=== PATIENT | male | born 1995 | race Caucasian/White ===

== ENCOUNTER 2018-02-27 22:40 | Emergency (ER) | payer BC, OTHER ==
[~2018-02-27] VITALS: Ht 182.9 cm; Wt 83.3 kg
[~2018-02-27 22:40] MED LIST: ALBU1AER9 INH; FLUO40CA8 PO; INSPMPNVLG; NovoLIN-R INSULIN PER UNIT CHARGE SQ STA; PRED20TA PO
[2018-02-27 22:50] VITALS: TEMP 36.6; Ht 182.9 cm; Wt 83.3 kg
--- NOTE | 2018-02-27 23:21 | EMERGENCY ROOM VISIT NOTE ---
History Report prepared by Tray: Jaci Hooper Under the Supervision of: Dr. Jose Eduardo Costa M.D. First contact with patient: 23:01 Chief Complaint: HYPERGLYCEMIA Stated Complaint: HBS,CHEST PAIN VOMITING L ARM NUMBNESS Nursing Triage Summary: unable to eat or drink much for about 3 days due to abdominal pain, n/v. c/o pain across upper abdomen and lower chest. SOB for last 24 hours. L arm numbness. chronic back pain from hx of broken back. BSGs in 500s. insulin pump in place. 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 Positive nausea, vomiting, SOB, severe pain in the bottom of his chest and upper abdomen, and left arm numbness. Negative sore throat, recent antibiotic use, recent trauma, recent falls, or recent long travel. The patient is a diabetic, uses an insulin pump, and notes that his BSGs have been "all over the place." He reports his left arm numbness has been intermittent however it has been constant since 1200 today along with his chest pain. He describes his left arm pain as "tingling." He is accompanied by his mother who reports that he has been in DKA before. The patient is a current tobacco user. 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 Review of Systems See HPI for pertinent positives and negatives. A total of ten systems were reviewed and were otherwise negative. Past Medical & Surgical Medical Problems: (1) Diabetes Family History Diabetes mellitus Heart disease Hypertension Kidney disease Lung disease Social History Smoking Status: Never Smoker Alcohol Use: none Marital Status: single Housing Status: lives with family Occupation Status: employed Current/Historical Medications Scheduled Insulin Aspart (novoLOG INSULIN PUMP ), 1 EA N/A UD Loratadine (Claritin), 10 MG PO DAILY Quetiapine Fumarate (Seroquel), 25 MG PO HS Venlafaxine Hcl (Effexor Extended Rel), 150 MG PO DAILY Scheduled PRN Albuterol (Proair Hfa), 2 PUFFS INH Q6H PRN for Cough or Wheezing Meloxicam (Mobic), 15 MG PO DAILY PRN for Pain Allergies Coded Allergies: Penicillins (Unverified Allergy, Severe, HIVES, 02/27/18) Sulfa Drugs (Unverified Allergy, Severe, HIVES, 02/27/18) Sulfisoxazole (Verified Allergy, Unknown, hives, 02/27/18) Physical Exam Vital Signs Date Time Temp Pulse Resp B/P (MAP) Pulse Ox O2 Delivery O2 Flow Rate FiO2 02/28/18 01:18 68 20 110/81 100 02/28/18 00:55 68 20 110/81 100 Room Air 02/27/18 23:53 87 17 122/75 97 Room Air 02/27/18 23:44 97 Room Air 02/27/18 23:39 73 02/27/18 22:50 36.6 89 20 136/82 98 Room Air Physical Exam GENERAL: Awake, alert, well-appearing, NAD HENT: Normocephalic, atraumatic. EYES: Normal conjunctiva. Sclera non-icteric. PERRL. No anisocoria. NECK: Supple. No nuchal rigidity. FROM. RESPIRATORY: CTAB, no rhonchi, wheezing, crackles CARDIAC: RRR, no MRG ABDOMEN: Soft, NTND, BS+. Insulin pump in the left abdomen. Negative Homans's sign BACK: No CVA TTP MSK: No chest wall TTP, no LE edema. No calf pain. NEURO: GCS 15, CN 2-12 intact, moves all 4s on command SKIN: No rash or jaundice noted. Medical Decision & Procedures ER Provider Diagnostic Interpretation: Radiology results as stated below per my review and interpretation: CHEST XRAY Trachea is midline. Costophrenic well-marked No free air under the diaphragm Heart normal size No evidence of pleural effusion or pneumothorax. Laboratory Results 02/27/18 23:14 Red Blood Count 5.47, Mean Corpuscular Volume 82.4, Mean Corpuscular Hemoglobin 29.4, Mean Corpuscular Hemoglobin Concent 35.7, Mean Platelet Volume 9.3, Neutrophils (%) (Auto) 57.2, Lymphocytes (%) (Auto) 34.6, Monocytes (%) (Auto) 5.4, Eosinophils (%) (Auto) 2.3, Basophils (%) (Auto) 0.4, Neutrophils # (Auto) 3.95, Lymphocytes # (Auto) 2.39, Monocytes # (Auto) 0.37, Eosinophils # (Auto) 0.16, Basophils # (Auto) 0.03 02/27/18 23:14 Test 02/27/18 23:14 02/27/18 23:38 02/27/18 23:44 02/28/18 00:45 White Blood Count 6.91 K/uL (4.8-10.8) Red Blood Count 5.47 M/uL (4.7-6.1) Hemoglobin 16.1 g/dL (14.0-18.0) Hematocrit 45.1 % (42-52) Mean Corpuscular Volume 82.4 fL (80-100) Mean Corpuscular Hemoglobin 29.4 pg (25-34) Mean Corpuscular Hemoglobin Concent 35.7 g/dl (32-36) Platelet Count 260 K/uL (130-400) Mean Platelet Volume 9.3 fL (7.4-10.4) Neutrophils (%) (Auto) 57.2 % Lymphocytes (%) (Auto) 34.6 % Monocytes (%) (Auto) 5.4 % Eosinophils (%) (Auto) 2.3 % Basophils (%) (Auto) 0.4 % Neutrophils # (Auto) 3.95 K/uL (1.4-6.5) Lymphocytes # (Auto) 2.39 K/uL (1.2-3.4) Monocytes # (Auto) 0.37 K/uL (0.11-0.59) Eosinophils # (Auto) 0.16 K/uL (0-0.5) Basophils # (Auto) 0.03 K/uL (0-0.2) RDW Standard Deviation 36.8 fL (36.4-46.3) RDW Coefficient of Variation 12.2 % (11.5-14.5) Immature Granulocyte % (Auto) 0.1 % Immature Granulocyte # (Auto) 0.01 K/uL (0.00-0.02) Anion Gap 10.0 mmol/L (3-11) Est Creatinine Clear Calc Drug Dose 123.7 ml/min Estimated GFR () 119.5 Estimated GFR (Non- 103.1 BUN/Creatinine Ratio 19.0 (10-20) Calcium Level 9.5 mg/dl (8.5-10.1) Magnesium Level 1.8 mg/dl (1.8-2.4) Total Bilirubin 0.5 mg/dl (0.2-1) Direct Bilirubin 0.1 mg/dl (0-0.2) Aspartate Amino Transf (AST/SGOT) 13 U/L (15-37) Alanine Aminotransferase (ALT/SGPT) 24 U/L (12-78) Alkaline Phosphatase 82 U/L (45-117) Troponin I < 0.015 ng/ml (0-0.045) Total Protein 7.8 gm/dl (6.4-8.2) Albumin 4.1 gm/dl (3.4-5.0) Lipase 86 U/L (73-393) Beta-Hydroxybutyric Acid mg/dL (0.2-2.81) Urine Color YELLOW Urine Appearance ERROR (CLEAR) Urine pH 5.0 (4.5-7.5) Urine Specific Micro 1.044 (1.000-1.030) Urine Protein NEG (NEG) Urine Glucose (UA) 3+ (NEG) Urine Ketones NEG (NEG) Urine Occult Blood NEG (NEG) Urine Nitrite NEG (NEG) Urine Bilirubin NEG (NEG) Urine Urobilinogen NEG (NEG) Urine Leukocyte Esterase NEG (NEG) Venous Blood pH 7.41 (7.36-7.41) Venous Blood Partial Pressure CO2 45 mmHg (38.0-50.0) Venous Blood Partial Pressure O2 42 mmHg Venous Blood HCO3 28 mmol/L Venous Blood Oxygen Saturation 75.8 % Venous Blood Base Excess 2.7 mEq/L Lactic Acid Level 1.6 mmol/L (0.4-2.0) Bedside Glucose 213 mg/dl (70-99) Laboratory results reviewed by me Medications Administered Medications (Trade) Dose Ordered Sig/Isabel Route Start Time Stop Time Status Last Admin Dose Admin Sodium Chloride 1,000 ml @ 999 mls/hr Q1H1M STAT IV 02/27/18 23:22 02/28/18 00:22 DC 02/27/18 23:34 999 MLS/HR Ondansetron HCl (Zofran Inj) 4 mg NOW STAT IV 02/27/18 23:22 02/27/18 23:24 DC 02/27/18 23:33 4 MG Ketorolac Tromethamine (Toradol Inj) 30 mg NOW STAT IV 02/27/18 23:22 02/27/18 23:24 DC 02/27/18 23:33 30 MG Acetaminophen (Tylenol Tab) 1,000 mg NOW STAT PO 02/27/18 23:22 02/27/18 23:24 DC 02/27/18 23:33 1,000 MG Insulin Human Regular (novoLIN-R U-100 PER UNIT) 5 units ONE STAT SQ 02/27/18 22:30 02/27/18 23:37 DC 02/27/18 23:52 5 UNITS Fentanyl Citrate (Fentanyl Inj) 50 mcg NOW ONCE IV 02/28/18 00:30 02/28/18 00:31 DC 02/28/18 00:54 50 MCG ED Course 2315: The patient was evaluated in room B2. A complete history and physical exam was performed. 2322: Ordered Insulin Human Regualr 5 units SQ, Tylenol Tab 1000 mg PO, Toradol Inj 30 mg IV, Zofran Inj 4 mg IV, Sodium Chloride 1000 ml @ 999 mls/hr IV 0023: I checked on the patient at this time. He is not feeling much better. 0030: Ordered Fentanyl Inj 50 mcg IV 0100: I reevaluated the patient. Discussed results and discharge instructions: He and his mother verbalized understanding and agreement. The patient is ready for discharge. 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 Positive nausea, vomiting, SOB, severe pain in the bottom of his chest and upper abdomen, and left arm numbness. Negative sore throat, recent antibiotic use, recent trauma, recent falls, or recent long travel. Prior records/ancillary studies reviewed. Triage Nursing notes reviewed. Additional history obtained from the patient's mother. The patient's history was concerning for chest pain. Differential diagnosis: Etiologies such as cardiac ischemia, aortic dissection, pulmonary embolism, pneumonia, pneumothorax, musculoskeletal, infections, pericarditis, myocarditis , esophageal rupture, gastrointestinal, as well as others were entertained. Patient was seen and evaluated the bedside. Patient had complained of some chest and upper abdominal pain. Patient's story did some mildly concerning however the patient does not complain of any exertional symptoms. Patient denies any family history of early cardiac disease. Patient has noted that he has had an elevated blood glucose. No recent changes. Patient denies any infectious symptoms. Patient did have blood work completed along with a VBG and lactate. EKG and troponin was ordered. Chest x-ray also ordered. Patient's blood work did show elevated blood glucose. Patient was given 5 regular insulin IV along with IV fluids. Recheck showed he was in the 200s. Patient is a normal bicarb and normal anion gap. Less likely DKA. Of note the patient's lactate is less than 2 and pH is within normal limits. Patient's UA is negative for infection. Chest x-ray per my read appears clear and no infection noted. Upon reassessment the patient is feeling improved. Patient was told to ensure that he follows up with his PCP. Patient's EKG was nonischemic with a negative troponin. Heart score less than 4 less likely ACS. Patient is PE RC of 0 low likely PE. Patient was given strict follow-up, discharge, and return precautions. All questions were answered. Patient was deemed suitable for outpatient follow-up at this time. Patient agreed with the plan of care and was safely discharged home. Medication Reconcilliation Current Medication List: was personally reviewed by me Blood Pressure Screening Patient's blood pressure: Normal blood pressure Blood pressure disposition: Did not require urgent referral Impression Primary Impression: Hyperglycemia due to type 1 diabetes mellitus Additional Impressions: Chest pain Tobacco abuse counseling Scribe Attestation The scribe's documentation has been prepared under my direction and personally reviewed by me in its entirety. I confirm that the note above accurately reflects all work, treatment, procedures, and medical decision making performed by me. Departure Information Dispostion Home / Self-Care Referrals Cori Angel M.D. (PCP) Forms HOME CARE DOCUMENTATION FORM, IMPORTANT VISIT INFORMATION, WORK / SCHOOL INSTRUCTIONS Patient Instructions ED Chest Pain NonCardiac, ED Smoking Cessation, My [facility] Additional Instructions Please return to the emergency department if you have worsening or recurrent symptoms not amenable to at-home treatment. Please call for a follow-up appointment with her primary care physician. Please take your medications as prescribed. If you have other concerns and/or complaints please feel free to also call your primary care physician's office or return the ED for further evaluation, management, and treatment. You were found to have an elevated blood pressure today (>120 sytolic or >90 diastolic). Per medicare guidelines, you need to follow up with this blood pressure screening with your Primary Care Physician (PCP). For a new PCP call [phone]. You received narcotic or benzodiazepene medication while in the emergency room today. This is an addictive medication that may cause drowziness as well as constipation. Do not drive, operate heavy machinery, or drink alcohol under the influence of this medication. You may take 800 mg Ibuprofen every 6 hours as needed for pain/fever with food unless told by your physician not to take NSAIDs. You may take tylenol 1000 mg every 6 hours as needed for pain/fever unless told by your physician to not take it or have liver problems. You may take motrin and tylenol separately or at the same time. Take your medications as prescribed. To help with your reflux type symptoms please consider smaller more frequent meals. Please do not lay down after eating. Consider avoiding spicy, citrus, peppermint, chocolate. Consider taking a PPI like Nexium 20 mg daily or an antihistamine like Pepcid 20 mg twice daily. Sitting upright may help improve your symptoms also. Do not lay down after eating or drinking. You may also try things like Tums or Maalox. Consider tobacco cessation. If you were seen between 11pm and 7AM all radiology reads will be re-read by our in house staff. If any major discrepancies are discovered, you will be notified. You have been examined and treated today on an emergency basis only. This is not a substitute for, or an effort to provide, complete comprehensive medical care. It is impossible to recognize and treat all injuries or illnesses in a single emergency department visit. It is therefore important that you follow up closely with [facility], your PCP, and/or your specialist(s). Call as soon as possible for an appointment. Thank you for your time and consideration. I look forward to speaking with you again soon. Please don't hesitate to call us if you have any questions. Problem Qualifiers Additional Impressions: Chest pain Chest pain type: unspecified Qualified Codes: R07.9 - Chest pain, unspecified
[2018-02-27] MEDS ORDERED: ONDANSETRON INJ 2 MG/ML 2 ML VIAL IV STA (23:22)
[2018-02-27] MEDS ORDERED: SODIUM CHLORIDE 0.9% 1000ML 1,000 ML IV STA (23:22)
[2018-02-27] MEDS ORDERED: ACETAMINOPHEN 500 MG TAB PO STA (23:22)
[2018-02-27] MEDS ORDERED: KETOROLAC TROMETHAMINE 30 MG/ML VIAL IV STA (23:22)
[2018-02-27] MEDS ORDERED: INSULIN HUMAN REGULAR SC STA (23:30)
[2018-02-27] MEDS ORDERED: MELO7.5T5 PO (23:31)
[2018-02-27] MEDS ORDERED: VENL150C56 PO (23:31)
[2018-02-27 23:35] LABS: BASO % 0.4 %; EOS % 2.3 %; HEMATOCRIT 45.1 % (42-52); HEMOGLOBIN 16.1 g/dL (14.0-18.0); LYMPH % 34.6 %; LYMPH ABS # 2.39 K/uL (1.2-3.4); MEAN CELL VOLUME 82.4 fL (80-100); MEAN CORPUSCULAR HEMOGLOBIN 29.4 pg (25-34); MEAN CORPUSCULAR HGB CONC 35.7 g/dl (32-36); MEAN PLATELET VOLUME 9.3 fL (7.4-10.4); MONO % 5.4 %; NEUT % 57.2 %; NEUT ABS # 3.95 K/uL (1.4-6.5); PLATELET COUNT 260 K/uL (130-400); RED CELL DISTRIBUTION WIDTH CV 12.2 % (11.5-14.5); RED CELL DISTRIBUTION WIDTH SD 36.8 fL (36.4-46.3); WHITE BLOOD COUNT 6.91 K/uL (4.8-10.8)
[2018-02-27 23:36] LABS: BASO ABS # 0.03 K/uL (0-0.2); EOS ABS # 0.16 K/uL (0-0.5); IG# 0.01 K/uL (0.00-0.02); MONO ABS # 0.37 K/uL (0.11-0.59)
[2018-02-27 23:44] VITALS: O2SAT 97
[2018-02-28 00:05] LABS: ALBUMIN 4.1 gm/dl (3.4-5.0); ALT/SGPT 24 U/L (12-78); AST/SGOT 13 U/L (15-37); BLOOD UREA NITROGEN 19 mg/dl (7-18); CALCIUM 9.5 mg/dl (8.5-10.1); CARBON DIOXIDE 25 mmol/L (21-32); CREATININE 1.02 mg/dl (0.60-1.40); GLUCOSE 451 mg/dl (70-99); LIPASE 86 U/L (73-393); SODIUM 134 mmol/L (136-145); TOTAL PROTEIN 7.8 gm/dl (6.4-8.2)
[2018-02-28 00:17] LABS: ALKALINE PHOSPHATASE 82 U/L (45-117)
[2018-02-28] MEDS ORDERED: FENTANYL CITRATE INJ 50 MCG/1 ML 2 ML VIAL IV ONE (00:30)
[2018-02-28 01:18] VITALS: BP 110/81; PULSE 68; O2SAT 100
--- NOTE | 2018-02-28 06:39 | DIAGNOSTIC IMAGING REPORT ---
CHEST ONE VIEW PORTABLE CLINICAL HISTORY: Abdominal pain and vomiting COMPARISON STUDY: 02/05/2016 FINDINGS: The cardiac and mediastinal contours are normal. There is no evidence of focal pulmonary consolidation. There is no evidence of failure. No pleural effusions are visualized.[ There is no free intraperitoneal air. IMPRESSION: No active disease in the chest. Electronically signed by: Patrick Varghese M.D. 02/28/2018 6:38 AM Dictated Date/Time: 02/28/2018 6:38 AM
[2018-03-01] MEDS ORDERED: MELO-83 PO (22:46)
[2018-03-01] MEDS ORDERED: EFFSR150 PO (22:46)
[2018-03-01] MEDS ORDERED: INSPMPNVLG (22:46)
[2018-03-01] MEDS ORDERED: ATOR-22 PO (22:46)
[2018-03-01] MEDS ORDERED: ALBU18002 INH (22:48)
[2018-03-01] MEDS ORDERED: QUET1TAB30 PO (23:30)
[2018-03-01] MEDS ORDERED: CLR10 PO (23:32)
== END 2018-02-28 01:19 | disposition home or self-care (01) ==
LOC: C.EDB 22:41
DX: E10.65 Type 1 diabetes mellitus with hyperglycemia (principal); R07.9 Chest pain, unspecified; Z71.6 Tobacco abuse counseling; F17.200 Nicotine dependence, unspecified, uncomplicated; Z83.3 Family history of diabetes mellitus; Z79.4 Long term (current) use of insulin; Z79.899 Other long term (current) drug therapy; Z88.0 Allergy status to penicillin; Z88.2 Allergy status to sulfonamides; Z96.41 Presence of insulin pump (external) (internal)

== ENCOUNTER 2018-03-01 22:17 | Emergency (ER) | payer OTHER ==
[~2018-03-01] VITALS: Ht 182.9 cm; Wt 85.0 kg
[~2018-03-01 22:17] MED LIST changes: -FLUO40CA8 PO; +MELO7.5T5 PO; -NovoLIN-R INSULIN PER UNIT CHARGE SQ STA; -PRED20TA PO; +VENL150C56 PO
[2018-03-01 22:18] VITALS: Ht 182.9 cm; Wt 85.0 kg
[2018-03-01 22:38] VITALS: O2SAT 96
[2018-03-01] MEDS ORDERED: ONDANSETRON INJ 2 MG/ML 2 ML VIAL IV STA (22:42)
[2018-03-01] MEDS ORDERED: SODIUM CHLORIDE 0.9% 1000ML 2,000 ML IV STA (22:42)
[2018-03-01] MEDS ORDERED: FAMOTIDINE 20 MG TAB PO ONE (22:45)
[2018-03-01] MEDS ORDERED: INSPMPNVLG (22:46)
[2018-03-01] MEDS ORDERED: MELO-83 PO (22:46)
[2018-03-01] MEDS ORDERED: EFFSR150 PO (22:46)
[2018-03-01] MEDS ORDERED: ATOR-22 PO (22:46)
[2018-03-01] MEDS ORDERED: ALBU18002 INH (22:48)
--- NOTE | 2018-03-01 22:50 | EMERGENCY ROOM VISIT NOTE ---
History Report prepared by Tray: Darien Smith Under the Supervision of: Dr. Bo Gore M.D. First contact with patient: 22:22 Chief Complaint: CHEST PAIN Stated Complaint: CHEST PAINS History of Present Illness The patient is a 22 year old male who presents to the Emergency Room with complaints of worsening chest pain that began a couple of days ago. He rates his discomfort as a 10/10 in severity. The patient states that he has been experiencing chest pain that originally felt like heart burn. The patient states that he was here in the ED two days ago due to his chest pain. He reports that he had lab work and an X-ray done, which were normal. The patient states that after discharge, his chest pain worsened. He reports he has also been nauseous, which is worsened with movement. The patient states took Zofran for his nausea which helped. He reports that he has vomited twice today. He reports he tried to take Tums today, but reports he was not relieved of symptoms. The patient states he has also been experiencing diaphoresis episodes and left arm numbness. He denies fevers, chills, urinary symptoms, previous similar symptoms, a smoking history, drug use, alcohol use, a history of blood clots, a history of a cholecystectomy, and a family history of PR. The patient reports a history of Type 1 diabetes. He reports he uses an insulin pump. He states his last BSG was in the 100s around 1300 today. The patient states he went into DKA three years ago because he was not using his insulin properly. Source of History: patient Onset: a couple of days ago Position: chest Symptom Intensity: 10/10 Timing: worsening Associated Symptoms: + diaphoresis, + nausea, + vomiting, + numbness, No fevers, No chills, No urinary symptoms Review of Systems See HPI for pertinent positives and negatives. A total of ten systems were reviewed and were otherwise negative. Past Medical & Surgical Medical Problems: (1) Diabetes Family History Diabetes mellitus Heart disease Hypertension Kidney disease Lung disease Social History Smoking Status: Never Smoker Alcohol Use: none Marital Status: single Housing Status: lives with family Occupation Status: employed Current/Historical Medications Scheduled Atorvastatin (Lipitor), 20 MG PO DAILY Famotidine (Pepcid), 20 MG PO BID Insulin Aspart (novoLOG INSULIN PUMP ), 1 EA N/A UD Loratadine (Claritin), 10 MG PO DAILY Omeprazole (Prilosec), 40 MG PO DAILY Ondasetron Odt (Zofran Odt), 4 MG SL Q6H Quetiapine Fumarate (Seroquel), 25 MG PO HS Sucralfate (Carafate), 10 ML PO QID Venlafaxine Hcl (Effexor Extended Rel), 150 MG PO DAILY Scheduled PRN Albuterol Sulfate (Proair Respiclick), 2 PUFFS INH Q6H PRN for Cough or Wheezing Meloxicam (Meloxicam), 15 MG PO DAILY PRN for Pain Allergies Coded Allergies: Penicillins (Unverified Allergy, Severe, HIVES, 02/27/18) Sulfa Drugs (Unverified Allergy, Severe, HIVES, 02/27/18) Sulfisoxazole (Verified Allergy, Unknown, hives, 02/27/18) Physical Exam Vital Signs Date Time Temp Pulse Resp B/P (MAP) Pulse Ox O2 Delivery O2 Flow Rate FiO2 03/02/18 02:10 36.8 60 20 110/60 100 Room Air 03/02/18 01:00 36.6 67 20 100/66 100 Room Air 03/01/18 22:47 88 03/01/18 22:38 96 Room Air 03/01/18 22:38 96 Room Air 03/01/18 22:18 36.6 101 20 123/78 100 Room Air Physical Exam GENERAL: Awake, alert, fatigued, uncomfortable appearing, in no distress HENT: Normocephalic, atraumatic. Oropharynx unremarkable. EYES: Normal conjunctiva. Sclera non-icteric. NECK: Supple. No nuchal rigidity. FROM. No JVD. RESPIRATORY: Clear to auscultation. CARDIAC: Regular rate, normal rhythm. Extremities warm and well perfused. Pulses equal. ABDOMEN: Soft, non-distended. Mild epigastric discomfort, no discrete tenderness. No rebound or guarding. No masses. RECTAL: Deferred. MUSCULOSKELETAL: Chest examination reveals no tenderness. The back is symmetrical on inspection without obvious abnormality. There is no CVA tenderness to palpation. No joint edema. LOWER EXTREMITIES: Calves are equal size bilaterally and non-tender. No edema. No discoloration. NEURO: Normal sensorium. No sensory or motor deficits noted. SKIN: No rash or jaundice noted. Diaphoretic and clammy. Medical Decision & Procedures ER Provider Diagnostic Interpretation: Radiology results as stated below per my review and radiologist interpretation: CHEST ONE VIEW PORTABLE HISTORY: 22 years-old Male ABDOMINAL PAIN/GI acute generalized abdominal pain COMPARISON: Chest radiograph 02/27/2018, CT chest 02/05/2016 TECHNIQUE: Portable AP view of the chest FINDINGS: Cardiomediastinal and hilar silhouettes are within normal limits. There is no pneumothorax, pleural effusion, focal airspace consolidation or overt pulmonary edema. The bones of the chest appear grossly intact. IMPRESSION: No acute process. The above report was generated using voice recognition software. It may contain grammatical, syntax or spelling errors. Electronically signed by: Martín Devlin M.D. 03/01/2018 11:04 PM Dictated Date/Time: 03/01/2018 11:03 PM US RUQ: Contracted gallbladder. Nondilated CBD. No renal stones or hydronephrosis. Enlarged fatty liver. Laboratory Results 03/01/18 22:30 Red Blood Count 5.41, Mean Corpuscular Volume 80.8, Mean Corpuscular Hemoglobin 28.8, Mean Corpuscular Hemoglobin Concent 35.7, Mean Platelet Volume 9.4, Neutrophils (%) (Auto) 61.4, Lymphocytes (%) (Auto) 29.3, Monocytes (%) (Auto) 7.2, Eosinophils (%) (Auto) 1.7, Basophils (%) (Auto) 0.3, Neutrophils # (Auto) 4.77, Lymphocytes # (Auto) 2.28, Monocytes # (Auto) 0.56, Eosinophils # (Auto) 0.13, Basophils # (Auto) 0.02 03/01/18 22:30 Test 03/01/18 00:00 03/01/18 22:30 03/01/18 23:12 03/01/18 23:19 Urine Color YELLOW Urine Appearance CLEAR (CLEAR) Urine pH 6.5 (4.5-7.5) Urine Specific [place] 1.029 (1.000-1.030) Urine Protein NEG (NEG) Urine Glucose (UA) 3+ (NEG) Urine Ketones NEG (NEG) Urine Occult Blood NEG (NEG) Urine Nitrite NEG (NEG) Urine Bilirubin NEG (NEG) Urine Urobilinogen NEG (NEG) Urine Leukocyte Esterase NEG (NEG) White Blood Count 7.77 K/uL (4.8-10.8) Red Blood Count 5.41 M/uL (4.7-6.1) Hemoglobin 15.6 g/dL (14.0-18.0) Hematocrit 43.7 % (42-52) Mean Corpuscular Volume 80.8 fL (80-100) Mean Corpuscular Hemoglobin 28.8 pg (25-34) Mean Corpuscular Hemoglobin Concent 35.7 g/dl (32-36) Platelet Count 263 K/uL (130-400) Mean Platelet Volume 9.4 fL (7.4-10.4) Neutrophils (%) (Auto) 61.4 % Lymphocytes (%) (Auto) 29.3 % Monocytes (%) (Auto) 7.2 % Eosinophils (%) (Auto) 1.7 % Basophils (%) (Auto) 0.3 % Neutrophils # (Auto) 4.77 K/uL (1.4-6.5) Lymphocytes # (Auto) 2.28 K/uL (1.2-3.4) Monocytes # (Auto) 0.56 K/uL (0.11-0.59) Eosinophils # (Auto) 0.13 K/uL (0-0.5) Basophils # (Auto) 0.02 K/uL (0-0.2) RDW Standard Deviation 35.7 fL (36.4-46.3) RDW Coefficient of Variation 12.2 % (11.5-14.5) Immature Granulocyte % (Auto) 0.1 % Immature Granulocyte # (Auto) 0.01 K/uL (0.00-0.02) Est Creatinine Clear Calc Drug Dose 128.7 ml/min Estimated GFR () 125.4 Estimated GFR (Non- 108.2 BUN/Creatinine Ratio 14.7 (10-20) Calcium Level 9.1 mg/dl (8.5-10.1) Total Bilirubin 0.3 mg/dl (0.2-1) Direct Bilirubin 0.1 mg/dl (0-0.2) Aspartate Amino Transf (AST/SGOT) 21 U/L (15-37) Alanine Aminotransferase (ALT/SGPT) 23 U/L (12-78) Alkaline Phosphatase 68 U/L (45-117) Total Protein 7.3 gm/dl (6.4-8.2) Albumin 3.9 gm/dl (3.4-5.0) Lipase 74 U/L (73-393) Venous Blood pH 7.44 (7.36-7.41) Venous Blood Partial Pressure CO2 44 mmHg (38.0-50.0) Venous Blood Partial Pressure O2 40 mmHg Venous Blood HCO3 29 mmol/L Venous Blood Oxygen Saturation 74.3 % Venous Blood Base Excess 3.9 mEq/L Lactic Acid Level 1.4 mmol/L (0.4-2.0) Bedside Hemoglobin 14.6 g/dl (14.0-18.0) Bedside Hematocrit 43 % (42-52) Bedside Sodium 139 mEq/L (135-144) Bedside Potassium 3.5 mEq/L (3.3-5.0) Bedside Chloride 100 mEq/L (101-112) Bedside Total CO2 24 mEq/l (24-31) Anion Gap 20.0 mmol/L (16-25) Bedside Blood Urea Nitrogen 16 mg/dl (7-18) Bedside Creatinine 0.7 mg/dl (0.6-1.3) Bedside Glucose (other) 286 mg/dl (70-99) Bedside Ionized Calcium (Rhonda) 1.21 mmol/l (1.12-1.32) Laboratory results reviewed by me Medications Administered Medications (Trade) Dose Ordered Sig/Isabel Route Start Time Stop Time Status Last Admin Dose Admin Sodium Chloride 2,000 ml @ 999 mls/hr Q2H1M STAT IV 03/01/18 22:42 03/02/18 00:42 DC 03/01/18 23:12 999 MLS/HR Ondansetron HCl (Zofran Inj) 4 mg NOW STAT IV 03/01/18 22:42 03/01/18 22:49 DC 03/01/18 23:12 4 MG Famotidine (Pepcid Tab) 20 mg NOW ONCE PO 03/01/18 22:45 03/01/18 22:49 DC 03/01/18 23:12 20 MG Al Hydroxide/Mg Hydroxide (Maalox Susp) 30 ml STK-MED ONCE .ROUTE 03/02/18 00:04 03/02/18 00:05 DC 03/02/18 00:06 30 ML Lidocaine HCl (Viscous Lidocaine 2% Soln) 20 ml STK-MED ONCE .ROUTE 03/02/18 00:04 03/02/18 00:05 DC 03/02/18 00:06 20 ML Sucralfate (Carafate Susp) 1 gm NOW STAT PO 03/02/18 02:03 03/02/18 02:05 DC 03/02/18 02:10 1 GM Pantoprazole Sodium (Protonix Tab) 40 mg NOW STAT PO 03/02/18 02:03 03/02/18 02:05 DC 03/02/18 02:10 40 MG ECG Per My Interpretation Indication: chest pain Rate (beats per minute): 95 Rhythm: normal sinus Findings: no acute ischemic change, other (Normal axis) ED Course 2241: The patient was evaluated in room B09. A complete history and physical exam was performed. 0200: I reevaluated the patient and he is feeling better. I discussed the results with the patient. I discussed the treatment plan, which he understands. The patient is ready for discharge. Medical Decision I reviewed the patient's past medical history, medications, and the nursing notes as described above. Differential Diagnosis: cardiac ischemia, aortic dissection, pulmonary embolism , pneumonia, pneumothorax, musculoskeletal, infections, pericarditis, myocarditis, esophageal rupture, gastrointestinal, as well as others were entertained. The patient is a 22 y/o gentleman with a pmhx of [id number] who presents to the emergency department with persistent chest/upper abdominal pain with n/v since being seen in the ED on 02/27 for similar sx per HPI. On arrival the patient is fatigued and uncomfortable but in NAD, AFVSS. Patient appears clinically dry. Mild epigastric discomfort but no discrete ttp. Labs unremarkable. No evidence of DKA. RUQ negative for gallstones or pericholecystic fluid. EKG unremarkable without TIA or HI depressions. Negative Spodick's sign. CXR negative. Patient improved after IVF, zofran, pepcid, GI cocktail. Heart score 0, low risk, acs unlikely. PERC negative PE not likely. Not positional, pericarditis not likely. No tearing pain and equal pulses, dissection not likely. Sx most c/w gastritis/ PUD. Plan for pcp and GI f/u. Findings and plan for follow-up reviewed with patient. Patient agreeable and d/c'd per discharge instructions. Medication Reconcilliation Current Medication List: was personally reviewed by me Blood Pressure Screening Patient's blood pressure: Normal blood pressure Impression Primary Impression: Gastritis Scribe Attestation The scribe's documentation has been prepared under my direction and personally reviewed by me in its entirety. I confirm that the note above accurately reflects all work, treatment, procedures, and medical decision making performed by me. Departure Information Dispostion Home / Self-Care Prescriptions Ondasetron Odt (ZOFRAN ODT) 4 Mg Tab 4 MG SL Q6H for Nausea, #10 TAB Prov: Bo Gore M.D. 03/02/18 Sucralfate (CARAFATE) 1 Gm/10 Ml Michelle 10 ML PO QID for 10 Days, #400 ML Prov: Bo Gore M.D. 03/02/18 Omeprazole (PRILOSEC) 40 Mg Cap 40 MG PO DAILY for 10 Days, #10 CAP Prov: Bo Gore M.D. 03/02/18 Famotidine (PEPCID) 20 Mg Tab 20 MG PO BID for 10 Days, #20 TAB Prov: Bo Gore M.D. 03/02/18 Referrals Cori Angel M.D. (PCP) Cody Renner M.D. Patient Instructions ED Gastritis, ED PUD Vs Gastritis, [facility] Additional Instructions Please follow up with your primary care physician in the next 1-3 days for re- evaluation and possible GI referral. Your symptoms are most likely related to a gastritis or peptic ulcer. Otherwise, your exam, EKG, chest xray, lab results, and gall bladder ultrasound did not show signs of an emergent condition at this time. Acetaminophen for pain and fevers as needed. Pepcid and omeprazole for acid reduction as directed. Carafate as directed for additional gastritis relief. Zofran as needed for nausea. Drink plenty of fluids to ensure hydration. Return to the emergency department for worsening symptoms as described in the accompanying instructions.
[2018-03-01 22:55] LABS: BASO % 0.3 %; BASO ABS # 0.02 K/uL (0-0.2); EOS % 1.7 %; EOS ABS # 0.13 K/uL (0-0.5); HEMATOCRIT 43.7 % (42-52); HEMOGLOBIN 15.6 g/dL (14.0-18.0); IG# 0.01 K/uL (0.00-0.02); LYMPH % 29.3 %; LYMPH ABS # 2.28 K/uL (1.2-3.4); MEAN CELL VOLUME 80.8 fL (80-100); MEAN CORPUSCULAR HEMOGLOBIN 28.8 pg (25-34); MEAN CORPUSCULAR HGB CONC 35.7 g/dl (32-36); MEAN PLATELET VOLUME 9.4 fL (7.4-10.4); MONO % 7.2 %; MONO ABS # 0.56 K/uL (0.11-0.59); NEUT % 61.4 %; NEUT ABS # 4.77 K/uL (1.4-6.5); PLATELET COUNT 263 K/uL (130-400); RED CELL DISTRIBUTION WIDTH CV 12.2 % (11.5-14.5); RED CELL DISTRIBUTION WIDTH SD 35.7 fL (36.4-46.3); WHITE BLOOD COUNT 7.77 K/uL (4.8-10.8)
--- NOTE | 2018-03-01 23:05 | DIAGNOSTIC IMAGING REPORT ---
CHEST ONE VIEW PORTABLE HISTORY: 22 years-old Male ABDOMINAL PAIN/GI acute generalized abdominal pain COMPARISON: Chest radiograph 02/27/2018, CT chest 02/05/2016 TECHNIQUE: Portable AP view of the chest FINDINGS: Cardiomediastinal and hilar silhouettes are within normal limits. There is no pneumothorax, pleural effusion, focal airspace consolidation or overt pulmonary edema. The bones of the chest appear grossly intact. IMPRESSION: No acute process. The above report was generated using voice recognition software. It may contain grammatical, syntax or spelling errors. Electronically signed by: Martín Devlin M.D. 03/01/2018 11:04 PM Dictated Date/Time: 03/01/2018 11:03 PM
[2018-03-01 23:13] LABS: ALBUMIN 3.9 gm/dl (3.4-5.0); CALCIUM 9.1 mg/dl (8.5-10.1); CREATININE 0.98 mg/dl (0.60-1.40); POTASSIUM 3.5 mmol/L (3.5-5.1)
[2018-03-01 23:15] LABS: TOTAL PROTEIN 7.3 gm/dl (6.4-8.2)
[2018-03-01] MEDS ORDERED: QUET1TAB30 PO (23:30)
[2018-03-01] MEDS ORDERED: CLR10 PO (23:32)
[2018-03-01 23:48] LABS: ISTAT CREATININE 0.7 mg/dl (0.6-1.3); ISTAT IONIZED CALCIUM 1.21 mmol/l (1.12-1.32); ISTAT POTASSIUM 3.5 mEq/L (3.3-5.0)
[2018-03-01] MEDS ORDERED: GI COCKTAIL PO STA (23:54)
[2018-03-02] MEDS ORDERED: LIDOCAINE HCL 2% VISC SOLN 20 ML UDC ONE (00:04)
[2018-03-02] MEDS ORDERED: ALUMINUM/MAGNESIUM SUSP 30 ML UDC ONE (00:04)
[2018-03-02] MEDS ORDERED: SUCRALFATE 1 GM/10 ML UDC PO STA (02:03)
[2018-03-02] MEDS ORDERED: PANTOprazole SOD 40 MG TAB PO STA (02:03)
[2018-03-02] MEDS ORDERED: OMEP40CA41 PO (02:07)
[2018-03-02] MEDS ORDERED: FAMO20TA9 PO (02:07)
[2018-03-02] MEDS ORDERED: ONDA4TAB10 SL (02:07)
[2018-03-02] MEDS ORDERED: CRFL PO (02:07)
[2018-03-02 02:10] VITALS: BP 110/60; PULSE 60; TEMP 36.8; O2SAT 100
--- NOTE | 2018-03-02 07:55 | DIAGNOSTIC IMAGING REPORT ---
GALLBLADDER-ABD LIMITED CLINICAL HISTORY: 22 years-old Male presenting with right upper abdominal pain, vomiting. TECHNIQUE: Real-time grayscale and limited color Doppler ultrasound imaging of the abdomen limited to the right upper quadrant was performed. COMPARISON: CT from 02/05/2016. FINDINGS: Pancreas: Largely obscured due to overlying bowel gas. Liver: Mildly hyperechogenic parenchyma, although the right hemidiaphragm remains visible, likely indicating mild steatosis. The liver measures 18.6 cm in maximal sagittal dimension. No sonographic evidence of hepatic mass. Main portal vein patent with normal directional flow. Biliary: No intrahepatic biliary ductal dilatation. Common bile duct measures up to 4 mm in diameter. Gallbladder: Decompressed. No gallstones, pathologic distention, pericholecystic fluid or inflammatory change. Right kidney: Normal in appearance without evidence of hydronephrosis. Ascites: None. Other: None. IMPRESSION: 1. No cholelithiasis or biliary ductal dilatation. 2. Hepatic steatosis and mild hepatomegaly. Correlate with liver function tests to exclude steatohepatitis as a cause for abdominal pain. Electronically signed by: Jeovany Nagy M.D. 03/02/2018 7:53 AM Dictated Date/Time: 03/02/2018 6:55 AM
== END 2018-03-02 02:18 | disposition home or self-care (01) ==
LOC: C.EDB 22:20
DX: K29.70 Gastritis, unspecified, without bleeding (principal); E10.9 Type 1 diabetes mellitus without complications; Z96.41 Presence of insulin pump (external) (internal); Z79.4 Long term (current) use of insulin; Z79.899 Other long term (current) drug therapy; Z88.0 Allergy status to penicillin; Z88.2 Allergy status to sulfonamides

== ENCOUNTER 2021-02-23 19:20 | Inpatient (IN) ==
[2021-02-23] MEDS ORDERED: SODIUM CHLORIDE 0.9% 1000ML 1,000 ML IV STA (19:30)
[2021-02-23] MEDS ORDERED: ONDANSETRON INJ 2 MG/ML 2 ML VIAL IV STA (19:30)
[2021-02-23 19:53] LABS: Basophils # (auto) 0.02 K/uL (0-0.2); Basophils % (auto) 0.2 %; Eosinophils # (auto) 0.03 K/uL (0-0.5); Eosinophils % (auto) 0.3 %; Hematocrit (blood only) 48.2 % (42-52); Hemoglobin 16.5 g/dL (14.0-18.0); Immature Granulocytes # (auto) 0.01 K/uL (0.00-0.02); Immature Granulocytes % (auto) 0.1 %; Lymphocytes # (auto) 0.92 K/uL (1.2-3.4); Lymphocytes % (auto) 8.2 %; Mean Corpuscular Hemoglobin 29.7 pg (25-34); Mean Corpuscular Hgb Conc 34.2 g/dL (32-36); Mean Corpuscular Volume 86.7 fL (80-100); Monocytes # (auto) 0.29 K/uL (0.11-0.59); Monocytes % (auto) 2.6 %; Neutrophils # (auto) 9.96 K/uL (1.4-6.5); Neutrophils % (auto) 88.6 %; Platelet Count 358 K/uL (130-400); RDW Coefficient of Variation 12.4 % (11.5-14.5); RDW Standard Deviation 39.7 fL (36.4-46.3); Red Blood Count 5.56 M/uL (4.7-6.1); White Blood Count 11.23 K/uL (4.8-10.8)
--- NOTE | 2021-02-23 19:59 | Emergency Department Note ---
Impression & Plan DKA (diabetic ketoacidoses), Nausea & vomiting, Headache ED Provider Note NAME: CATHRYN DING AGE: 25 SEX: M : 1995 ARRIVES VIA: Walk-In INFORMANT: Patient, ED PROVIDER(S): Hung Brown DO CHIEF COMPLAINT: Nausea vomiting HPI: The patient is a 25-year-old male who presented to the emergency department for an evaluation of nausea vomiting. The patient has seen his family doctor for the symptoms. The symptoms have been ongoing for the last few days. The patient does take insulin for diabetes. Currently has an insulin pump which is running. The patient states he is noted his blood sugars have been elevated and they have been over 400. He describes nausea vomiting and severe headache. He also describes sore throat. He denies having any abdominal pain. He does describe some chest pain but states it is secondary to all the vomiting. He has had no fever. He notices no weakness in the arms or legs. He states that he has had similar symptoms in the past with a headache. He states he has had similar symptoms in the past with the vomiting but this appears to be worse compared to his baseline. The patient has no neck stiffness. He said no recent traveling. He said no exposure to COVID-19. ROS: See above HPI for pertinent positives & negatives. A total of 10 systems reviewed and were otherwise negative. PAST MEDICAL HISTORY: See Below PAST SURGICAL HISTORY: See Below FAMILY HISTORY: See Below SOCIAL HISTORY: See Below HOME MEDICATIONS: See Below ALLERGIES: See Below VITALS: See Below PHYSICAL EXAMINATION: GENERAL: The patient is awake and alert. The patient is very anxious appearing. EYES: The conjunctivae are clear. The pupils are round and reactive. EARS, NOSE, MOUTH AND THROAT: The nose is without any evidence of any deformity. Mucous membranes are dry. NECK: The neck is nontender and supple. RESPIRATORY: Normal respiratory effort is noted there is no evidence of wheezing rhonchi or rales CARDIOVASCULAR: Regular rate and rhythm noted there no murmurs rubs or gallops normal S1 normal S2. GASTROINTESTINAL: The abdomen is soft. Abdomen is nontender. MUSCULOSKELETAL/EXTREMITIES: There is no evidence of gross deformity full range of motion is noted in the hips and shoulders. SKIN: There is no obvious evidence of any rash. There are no petechiae, pallor or cyanosis noted. NEUROLOGIC: Patient is awake alert and oriented x3 strength is symmetric patellar reflexes are 2+ bilaterally MEDICAL DECISION MAKING: The patient is a 25-year-old male who has a history of insulin-dependent diabetes who presented to the emergency department with nausea vomiting. The patient was somewhat tachypneic initially. He is also been having elevated blood sugar at home. The patient was treated with IV fluids and IV antiemetics. He was reevaluated multiple times. I discussed the patient's laboratory and radiographic studies with him. His vital signs improved but he still continued to have a headache. The patient was found to be in DKA. Insulin orders were put in. The patient's insulin pump was asked to be put on pause at this time. I discussed this case with the on-call [facility] hospitalist. They have agreed to evaluate the patient in the emergency department for further management and disposition. The patient had no meningismus or focal neurologic deficits. Triage Nursing notes reviewed. Prior medical records reviewed Vital Signs: reviewed and remarkable for no significant abnormalities Differential diagnosis: Gastroenteritis, food borne illness, infections, appendicitis, diverticulitis, inflammatory bowel disease, obstruction, GI bleed, biliary pathology, volvulus, as well as other pathologies. ER treatment provided: See below Diagnostics interpreted by me: ECG: EKG was obtained in the emergency department. My interpretation is normal sinus rhythm at 93 bpm. There was no ectopy. There was no acute ST segment abnormalities noted. This was compared to a tracing from March 01, 2018. No significant changes were noted. Cardiac Monitoring: An order was placed for continuous cardiac monitoring. The monitor shows a rate of 85 bpm with sinus rhythm. Laboratory studies: As stated above and show below. Imaging studies: See below Consultation(s): 2049: I discussed this case with Dr. Neal. He will evaluate the patient in the emergency department ED COURSE: Procedures: none PDMP:reviewed and no issues Critical Care: I have personally spent greater than 45 minutes of critical care time in the direct management of this patient. This includes bedside care, interpretation of diagnostic studies, and testing, discussion with consultants, patient, and family members, and other required patient management activities. This 45 minutes is in excess of all separately billable procedures. Past Med/Surg History Medical History Dehydration Diabetes Surgical History History of brain surgery Social History (Updated 02/23/21 @ 20:00 by Hung Brown DO) Smoking Status: Never smoker Tobacco Type: Smokeless Tobacco (Dip or Chew) Preferred Language: Maori Allergies Allergies Allergy/AdvReac Type Severity Reaction Status Date / Time Penicillins Allergy Severe HIVES Unverified 02/23/21 20:34 Sulfa (Sulfonamide Allergy Severe HIVES Unverified 02/23/21 20:34 Antibiotics) sulfisoxazole Allergy Unknown hives Verified 02/23/21 20:34 Home Meds Home Medications Medication Instructions Recorded Confirmed acetaminophen [Tylenol Extra 1,000 mg PO Q6H PRN 02/23/21 02/23/21 Strength] atorvastatin 40 mg PO HS 02/23/21 02/23/21 duloxetine 60 mg PO HS 02/23/21 02/23/21 fexofenadine [Pippa] 180 mg PO HS 02/23/21 02/23/21 insulin aspart U-100 [Novolog 100 unit CONTINUOUS SUBCUTANEOUS 02/23/21 02/23/21 U-100 Insulin aspart] INFUSION DAILY omeprazole 20 mg PO HS 02/23/21 02/23/21 Results & Data (ED) Vital Signs Vital Signs - 24 hr 02/23/21 19:22 02/23/21 20:02 02/23/21 20:59 Temperature 36.7 C Temperature Source Temporal Artery Scan Pulse Rate 78 82 Pulse Rate [Bilateral Apical] 81 86 Pulse Rhythm Regular Pulse Strength Normal Respiratory Rate 20 20 20 Respiratory Effort / Characteristics Non-Labored Respiratory Depth Normal Blood Pressure 139/77 Blood Pressure [Left Arm] 123/71 129/73 Blood Pressure Mean 97 Blood Pressure Mean [Left Arm] 88 91 Pulse Oximetry 98 99 99 Oxygen Delivery Method Room Air Room Air Room Air Sepsis Recent Fever Within 48 Hours No Sepsis New/Unexplained Change in Mental Status N/A Sepsis Action Taken by Nursing No Action Required Home Medications Current Medication List: was personally reviewed by me Laboratory Data Attestation: I reviewed the patient's lab results. Result diagrams: 02/23/21 19:38 02/23/21 20:54 Lab Results 02/23/21 02/23/21 02/23/21 Range/Units 19:38 19:38 19:38 WBC 11.23 H (4.8-10.8) K/uL RBC 5.56 (4.7-6.1) M/uL Hgb 16.5 (14.0-18.0) g/dL Hct 48.2 (42-52) % MCV 86.7 (80-100) fL MCH 29.7 (25-34) pg MCHC 34.2 (32-36) g/dL RDW Std Deviation 39.7 (36.4-46.3) fL RDW Coeff of Omi 12.4 (11.5-14.5) % Plt Count 358 (130-400) K/uL MPV 10.0 (7.4-10.4) fL Immature Gran % (Auto) 0.1 % Neut % (Auto) 88.6 % Lymph % (Auto) 8.2 % [place] % (Auto) 2.6 % Eos % (Auto) 0.3 % Baso % (Auto) 0.2 % Neut # (Auto) 9.96 H (1.4-6.5) K/uL Lymph # (Auto) 0.92 L (1.2-3.4) K/uL [place] # (Auto) 0.29 (0.11-0.59) K/uL Eos # (Auto) 0.03 (0-0.5) K/uL Baso # (Auto) 0.02 (0-0.2) K/uL Immature Gran # (Auto) 0.01 (0.00-0.02) K/uL ESR (0-15) mm/hr PT 9.7 (9.0-12.0) Seconds INR 1.0 (0.9-1.1) APTT 21.5 (21.0-31.0) Seconds PTT Ratio 0.8 VBG pH (7.36-7.41) VBG pCO2 (38-50) mmHg VBG pO2 mmHg VBG HCO3 mmol/L VBG O2 Saturation % VBG Base Excess mEq/L Barometric Pressure mm/Hg Sodium 133 L (136-145) mmol/L Potassium 4.5 (3.5-5.1) mmol/L Chloride 95 L (98-107) mmol/L Carbon Dioxide 18 L (21-32) mmol/L Anion Gap 20.0 H (3-11) BUN 20 H (7-18) mg/dl Creatinine 1.29 (0.6-1.4) mg/dl Est Cr Clr Drug Dosing 92.4 ml/min Est GFR ( Amer) 88.1 Est GFR (Non-Af Amer) 76.0 BUN/Creatinine Ratio 15.9 (10-20) Glucose 435 H* (70-99) mg/dl POC Glucose (70-99) mg/dl Calcium 10.1 (8.5-10.1) mg/dl Phosphorus (2.5-4.9) mg/dl Magnesium (1.8-2.4) mg/dl Total Bilirubin 1.1 H (0.2-1) mg/dl AST 13 L (15-37) U/L ALT 33 (12-78) U/L Alkaline Phosphatase 109 (45-117) U/L Troponin I < 0.015 (0-0.045) ng/ml C-Reactive Protein < 0.29 (0-0.29) mg/dl Total Protein 8.5 H (6.4-8.2) gm/dl Albumin 4.7 (3.4-5.0) gm/dl Globulin 3.8 (2.5-4.0) gm/dl Albumin/Globulin Ratio 1.2 (0.9-2) Lipase 46 L (73-393) U/L Beta-Hydroxybutyric Acd > 46.00 H (0.2-2.81) mg/dl COVID-19 Eval Order Monoscreen (Negative) 02/23/21 02/23/21 02/23/21 Range/Units 19:38 19:38 19:51 WBC (4.8-10.8) K/uL RBC (4.7-6.1) M/uL Hgb (14.0-18.0) g/dL Hct (42-52) % MCV (80-100) fL MCH (25-34) pg MCHC (32-36) g/dL RDW Std Deviation (36.4-46.3) fL RDW Coeff of Omi (11.5-14.5) % Plt Count (130-400) K/uL MPV (7.4-10.4) fL Immature Gran % (Auto) % Neut % (Auto) % Lymph % (Auto) % [place] % (Auto) % Eos % (Auto) % Baso % (Auto) % Neut # (Auto) (1.4-6.5) K/uL Lymph # (Auto) (1.2-3.4) K/uL [place] # (Auto) (0.11-0.59) K/uL Eos # (Auto) (0-0.5) K/uL Baso # (Auto) (0-0.2) K/uL Immature Gran # (Auto) (0.00-0.02) K/uL ESR 18 H (0-15) mm/hr PT (9.0-12.0) Seconds INR (0.9-1.1) APTT (21.0-31.0) Seconds PTT Ratio VBG pH 7.28 L (7.36-7.41) VBG pCO2 35 L (38-50) mmHg VBG pO2 34 mmHg VBG HCO3 16 mmol/L VBG O2 Saturation 62.4 % VBG Base Excess -9.5 mEq/L Barometric Pressure 726.7 mm/Hg Sodium (136-145) mmol/L Potassium (3.5-5.1) mmol/L Chloride (98-107) mmol/L Carbon Dioxide (21-32) mmol/L Anion Gap (3-11) BUN (7-18) mg/dl Creatinine (0.6-1.4) mg/dl Est Cr Clr Drug Dosing ml/min Est GFR ( Amer) Est GFR (Non-Af Amer) BUN/Creatinine Ratio (10-20) Glucose (70-99) mg/dl POC Glucose (70-99) mg/dl Calcium (8.5-10.1) mg/dl Phosphorus (2.5-4.9) mg/dl Magnesium (1.8-2.4) mg/dl Total Bilirubin (0.2-1) mg/dl AST (15-37) U/L ALT (12-78) U/L Alkaline Phosphatase (45-117) U/L Troponin I (0-0.045) ng/ml C-Reactive Protein (0-0.29) mg/dl Total Protein (6.4-8.2) gm/dl Albumin (3.4-5.0) gm/dl Globulin (2.5-4.0) gm/dl Albumin/Globulin Ratio (0.9-2) Lipase (73-393) U/L Beta-Hydroxybutyric Acd (0.2-2.81) mg/dl COVID-19 Eval Order Monoscreen Negative (Negative) 02/23/21 02/23/21 02/23/21 Range/Units 20:54 20:54 20:57 WBC (4.8-10.8) K/uL RBC (4.7-6.1) M/uL Hgb (14.0-18.0) g/dL Hct (42-52) % MCV (80-100) fL MCH (25-34) pg MCHC (32-36) g/dL RDW Std Deviation (36.4-46.3) fL RDW Coeff of Omi (11.5-14.5) % Plt Count (130-400) K/uL MPV (7.4-10.4) fL Immature Gran % (Auto) % Neut % (Auto) % Lymph % (Auto) % [place] % (Auto) % Eos % (Auto) % Baso % (Auto) % Neut # (Auto) (1.4-6.5) K/uL Lymph # (Auto) (1.2-3.4) K/uL [place] # (Auto) (0.11-0.59) K/uL Eos # (Auto) (0-0.5) K/uL Baso # (Auto) (0-0.2) K/uL Immature Gran # (Auto) (0.00-0.02) K/uL ESR (0-15) mm/hr PT (9.0-12.0) Seconds INR (0.9-1.1) APTT (21.0-31.0) Seconds PTT Ratio VBG pH 7.32 L (7.36-7.41) VBG pCO2 (38-50) mmHg VBG pO2 mmHg VBG HCO3 mmol/L VBG O2 Saturation % VBG Base Excess mEq/L Barometric Pressure mm/Hg Sodium 135 L (136-145) mmol/L Potassium 4.1 (3.5-5.1) mmol/L Chloride 99 (98-107) mmol/L Carbon Dioxide 17 L (21-32) mmol/L Anion Gap 19.0 H (3-11) BUN 19 H (7-18) mg/dl Creatinine 1.05 (0.6-1.4) mg/dl Est Cr Clr Drug Dosing 113.5 ml/min Est GFR ( Amer) 113.0 Est GFR (Non-Af Amer) 97.5 BUN/Creatinine Ratio 17.9 (10-20) Glucose 321 H* (70-99) mg/dl POC Glucose 322 H* (70-99) mg/dl Calcium 9.3 (8.5-10.1) mg/dl Phosphorus 3.5 (2.5-4.9) mg/dl Magnesium 2.1 (1.8-2.4) mg/dl Total Bilirubin (0.2-1) mg/dl AST (15-37) U/L ALT (12-78) U/L Alkaline Phosphatase (45-117) U/L Troponin I (0-0.045) ng/ml C-Reactive Protein (0-0.29) mg/dl Total Protein (6.4-8.2) gm/dl Albumin (3.4-5.0) gm/dl Globulin (2.5-4.0) gm/dl Albumin/Globulin Ratio (0.9-2) Lipase (73-393) U/L Beta-Hydroxybutyric Acd (0.2-2.81) mg/dl COVID-19 Eval Order Monoscreen (Negative) 02/23/21 Range/Units 20:58 WBC (4.8-10.8) K/uL RBC (4.7-6.1) M/uL Hgb (14.0-18.0) g/dL Hct (42-52) % MCV (80-100) fL MCH (25-34) pg MCHC (32-36) g/dL RDW Std Deviation (36.4-46.3) fL RDW Coeff of Omi (11.5-14.5) % Plt Count (130-400) K/uL MPV (7.4-10.4) fL Immature Gran % (Auto) % Neut % (Auto) % Lymph % (Auto) % [place] % (Auto) % Eos % (Auto) % Baso % (Auto) % Neut # (Auto) (1.4-6.5) K/uL Lymph # (Auto) (1.2-3.4) K/uL [place] # (Auto) (0.11-0.59) K/uL Eos # (Auto) (0-0.5) K/uL Baso # (Auto) (0-0.2) K/uL Immature Gran # (Auto) (0.00-0.02) K/uL ESR (0-15) mm/hr PT (9.0-12.0) Seconds INR (0.9-1.1) APTT (21.0-31.0) Seconds PTT Ratio VBG pH (7.36-7.41) VBG pCO2 (38-50) mmHg VBG pO2 mmHg VBG HCO3 mmol/L VBG O2 Saturation % VBG Base Excess mEq/L Barometric Pressure mm/Hg Sodium (136-145) mmol/L Potassium (3.5-5.1) mmol/L Chloride (98-107) mmol/L Carbon Dioxide (21-32) mmol/L Anion Gap (3-11) BUN (7-18) mg/dl Creatinine (0.6-1.4) mg/dl Est Cr Clr Drug Dosing ml/min Est GFR ( Amer) Est GFR (Non-Af Amer) BUN/Creatinine Ratio (10-20) Glucose (70-99) mg/dl POC Glucose (70-99) mg/dl Calcium (8.5-10.1) mg/dl Phosphorus (2.5-4.9) mg/dl Magnesium (1.8-2.4) mg/dl Total Bilirubin (0.2-1) mg/dl AST (15-37) U/L ALT (12-78) U/L Alkaline Phosphatase (45-117) U/L Troponin I (0-0.045) ng/ml C-Reactive Protein (0-0.29) mg/dl Total Protein (6.4-8.2) gm/dl Albumin (3.4-5.0) gm/dl Globulin (2.5-4.0) gm/dl Albumin/Globulin Ratio (0.9-2) Lipase (73-393) U/L Beta-Hydroxybutyric Acd (0.2-2.81) mg/dl COVID-[address] Cov[facility]Rsv at [facility] Monoscreen (Negative) Administered Medications Discontinued Medications Sodium Chloride (Nss 1000ml) 1,000 mls @ 999 mls/hr IV .Q1H1M STA Stop: 02/23/21 20:30 Last Infusion: 02/23/21 20:57 Dose: 0 mls/hr Documented by: [id number] Admin: 02/23/21 19:50 Dose: 999 mls/hr Documented by: [id number] Sodium Chloride (Nss 1000ml) 1,000 mls @ 999 mls/hr IV .Q1H1M ONE Stop: 02/23/21 21:34 Last Admin: 02/23/21 20:50 Dose: 999 mls/hr Documented by: [id number] Promethazine HCl (Phenergan) 12.5 mg in 50.5 mls @ 202 mls/hr IV NOW STA Stop: 02/23/21 20:55 Last Infusion: 02/23/21 21:11 Dose: 0 mls/hr Documented by: [id number] Admin: 02/23/21 20:50 Dose: 202 mls/hr Documented by: [id number] Ketorolac Tromethamine (Ketorolac Tromethamine 15 Mg/Ml Vial) 10 mg IV NOW ONE Stop: 02/23/21 20:42 Last Admin: 02/23/21 20:50 Dose: 10 mg Documented by: [id number] Ondansetron HCl (Ondansetron Inj 2 Mg/Ml 2 Ml Vial) 4 mg IV NOW STA Stop: 02/23/21 19:31 Last Admin: 02/23/21 19:50 Dose: 4 mg Documented by: [id number] Imaging Data Attestation: I personally reviewed and interpreted this imaging study as follows: My Impression: KUB was obtained in the emergency department. My interpretation is nonspecific bowel gas pattern noted. There is no signs of obstruction. There is no free air. 1 view of the chest x-ray was obtained in the emergency department. My interpretation is no acute disease, no free air, no definite infiltrate was noted. Radiologist's Impression: Patient: CATHRYN DING (Male) : 89 Status: ER Date: 02/23/21 21:21 Room #: History: HEADACHE Slices: 57 Priors: Tech: Michael Solorio @ [phone] Exams: CT HEAD Contrast: Accession Numbers: [id number] Preliminary Findings Only See Final Report For Complete Findings CT HEAD: Comparison 02/05/2016 No intracranial hemorrhage, mass-effect or CT evidence of acute infarct Ventricles are unchanged in size and remain midline Visualized paranasal sinuses, mastoids and orbits appear within limits Radiologist: Sergo Cali M.D. Study ready at 21:26 and initial results transmitted at 21:40 Discharge Plan Visit Data Chief Complaint: Illness Stated Complaint: VOMITING, NEGATIVE FOR COVID ED Provider: Hung Brown Discharge Problem: DKA (diabetic ketoacidoses), Nausea & vomiting, Headache Patient Disposition: Being Evaluated by Hospitalist Condition: Good Forms Stand Alone Forms: My [facility] Prescriptions Prescriptions: No Action atorvastatin 40 mg tablet 40 mg PO HS RF: 0 insulin aspart U-100 [Novolog U-100 Insulin aspart] 100 unit/mL solution 100 unit continuous subcutaneous infusion DAILY RF: 0 omeprazole 20 mg capsule,delayed release(DR/EC) 20 mg PO HS RF: 0 duloxetine 60 mg capsule,delayed release(DR/EC) 60 mg PO HS RF: 0 fexofenadine [Pippa] 180 mg Tablet 180 mg PO HS RF: 0 acetaminophen [Tylenol Extra Strength] 500 mg Tablet 1,000 mg PO Q6H PRN (Reason: Pain) RF: 0 Referrals Referrals: Cori Angel MD [Primary Care Provider] - Discharge Problem: DKA (diabetic ketoacidoses) Qualifiers: Diabetes mellitus type: type 1 Diabetes mellitus complication detail: without c juan alberto Qualified Code(s): E10.10 - Type 1 diabetes mellitus with ketoacidosis without coma Nausea & vomiting Qualifiers: Vomiting type: unspecified Vomiting Intractability: non-intractable Qualified Code(s): R11.2 - Nausea with vomiting, unspecified Headache Qualifiers: Headache type: unspecified Headache chronicity pattern: unspecified pattern Intractability: not intractable Qualified Code(s): R51.9 - Headache, unspecified
[2021-02-23 20:13] LABS: Base Excess VBG -9.5 mEq/L; Oxygen Saturation VBG 62.4 %; pH VBG 7.28 (7.36-7.41)
[2021-02-23 20:16] LABS: Alanine Aminotransferase 33 U/L (12-78); Albumin Globulin Ratio 1.2 (0.9-2); Albumin Level 4.7 gm/dl (3.4-5.0); Alkaline Phosphatase 109 U/L (45-117); Aspartate Aminotransferase 13 U/L (15-37); BUN Creatinine Ratio 15.9 (10-20); Beta-Hydroxybutyrate > 46.00 mg/dl (0.2-2.81); Bilirubin,Total 1.1 mg/dl (0.2-1); Blood Urea Nitrogen 20 mg/dl (7-18); C Reactive Protein < 0.29 mg/dl (0-0.29); Calcium 10.1 mg/dl (8.5-10.1); Carbon Dioxide 18 mmol/L (21-32); Chloride 95 mmol/L (98-107); Creatinine Clr Calc Pharmacy 92.4 ml/min; Est GFR (African American) 88.1; Globulin 3.8 gm/dl (2.5-4.0); Lipase 46 U/L (73-393); Partial Thromboplastin Ratio 0.8; Partial Thromboplastin Time 21.5 Seconds (21.0-31.0); Potassium 4.5 mmol/L (3.5-5.1); Prothrombin Time 9.7 Seconds (9.0-12.0); Sodium 133 mmol/L (136-145); Total Protein 8.5 gm/dl (6.4-8.2); Troponin I < 0.015 ng/ml (0-0.045)
[2021-02-23 20:25] LABS: Glucose 435 mg/dl (70-99)
[2021-02-23] MEDS ORDERED: SODIUM CHLORIDE 0.9% 1000ML 1,000 ML IV ONE (20:34)
[2021-02-23] MEDS ORDERED: KETOROLAC TROMETHAMINE 15 MG/ML VIAL IV ONE (20:41)
[2021-02-23] MEDS ORDERED: PROMETHAZINE 12.5 MG/50.5 ML BAG IV STA (20:41)
[2021-02-23] MEDS ORDERED: INSULIN REGULAR 250 UNITS in SODIUM CHLORIDE 0.9% 247.5 ML IV SCH (20:45)
[2021-02-23] MEDS ORDERED: INSULIN ASPART 100 UNITS/ML 3 ML PEN SC SCH (21:00)
[2021-02-23] MEDS ORDERED: LACTATED RINGER'S 1,000 ML IV STA (21:12)
[2021-02-23 21:24] LABS: BUN Creatinine Ratio 17.9 (10-20); Calcium 9.3 mg/dl (8.5-10.1); Creatinine Clr Calc Pharmacy 113.5 ml/min; Est GFR (Non-African American) 97.5; Magnesium 2.1 mg/dl (1.8-2.4); Phosphorus 3.5 mg/dl (2.5-4.9); Potassium 4.1 mmol/L (3.5-5.1)
[2021-02-23] MEDS ORDERED: GLUCOSE 40% GEL 15 GM TUBE PO PRN (21:30)
[2021-02-23] MEDS ORDERED: GLUCOSE 10 TABS/TUBE PO PRN (21:30)
[2021-02-23] MEDS ORDERED: GLUCAGON FOR INJ 1 MG VIAL IM PRN (21:30)
[2021-02-23] MEDS ORDERED: DEXTROSE 50% 50 ML SYRINGE IV PRN (21:30)
[2021-02-23] MEDS ORDERED: CARBOHYDRATES FOR HYPOGLYCEMIA PO PRN (21:30)
[2021-02-23] MEDS ORDERED: NovoLIN-R BOLUS FROM BAG IV ONE (21:30)
[2021-02-23 21:46] LABS: Influenza A virus by PCR Negative (Neg); Influenza B virus by PCR Negative (Neg); RSV by PCR Negative (Neg); SARS CoV2 RNA(COVID-19) InHosp NEGATIVE (Negative)
[2021-02-23 23:16] LABS: Appearance Urine Clear (Clear); Bilirubin Urine Negative (Negative); Blood Urine Negative (Negative); Color Urine Yellow; Glucose Urine UA 3+ (Negative); Ketones Urine 4+ (Negative); Leukocyte Esterase Urine Negative (Negative); Nitrite Urine Negative (Negative); Protein Urine Negative (Negative); Urobilinogen Urine Negative (Negative)
[2021-02-23] MEDS ORDERED: METOCLOPRAMIDE HCL INJ 5 MG/ML 2 ML VIAL IV STA (23:35)
--- NOTE | 2021-02-23 23:35 | History & Physical Report ---
Date of Service February 23, 2021 Assessment & Plan (1) DKA (diabetic ketoacidoses): Secondary to viral illness DM1 on insulin pump Suboptimal control as of recent hemoglobin A1c of 11.22 June 2020 Headache secondary to viral illness ? Migraine given photophobia Rule out recurrent " brain tumor", history of brain tumor as per patient status post surgery hx cavum septum pellucidum status post surgery ([facility] [place] 2005) hx seizures as per patient, no recent seizures, patient not on AED Rx hyperlipidemia on statin Rx asthma, well controlled mood disorder/PTSD, at baseline as per patient Ongoing tobacco abuse [facility] IV insulin Pharmacy glycemic control consultation Update hemoglobin A1c Analgesia MRI brain RE intractable headache, history of brain tumor as per patient Nicotine patch DVT prophylaxis SCDs RE brain tumor as per patient Full code Text document was generated using [employer] voice recognition software. It may contain grammatical or spelling errors. Kindly contact undersigned for clarification of any documentation item in question. History of Present Illness Chief Complaint: Abdominal pain nausea vomiting, headache, high sugars Primary Care Provider: Cori Angel MD History obtained from patient and records. Medical history significant for DM1 on insulin pump, hyperlipidemia, asthma, mood disorder/PTSD, "hx brain tumor" as per patient, hx cavum septum pellucidum status post surgery ([facility] 2005) history seizures as per patient, ongoing tobacco abuse. 1 week history of not feeling well, achy headache symptoms somewhat worse with light, subsequent achy abdominal pain, nausea, vomiting. Good BM. Chest pain from vomiting without shortness of breath as per patient. No known recent COVID-19 contacts. Symptoms attributed to viral illness on PCP visit. Outpatient COVID-19 test was negative. Worsening symptoms at home. Poor appetite. High sugars in the 500s. At the ER, IV insulin started for DKA. 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 Allergies Allergy/AdvReac Type Severity Reaction Status Date / Time Penicillins Allergy Severe HIVES Unverified 02/23/21 20:34 Sulfa (Sulfonamide Allergy Severe HIVES Unverified 02/23/21 20:34 Antibiotics) sulfisoxazole Allergy Unknown hives Verified 02/23/21 20:34 Home Medications Medication Instructions Recorded Confirmed Type acetaminophen [Tylenol Extra 1,000 mg PO Q6H PRN 02/23/21 02/23/21 History Strength] atorvastatin 40 mg PO HS 02/23/21 02/23/21 History duloxetine 60 mg PO HS 02/23/21 02/23/21 History fexofenadine [Pippa] 180 mg PO HS 02/23/21 02/23/21 History insulin aspart U-100 [Novolog 100 unit CONTINUOUS SUBCUTANEOUS 02/23/21 02/23/21 History U-100 Insulin aspart] INFUSION DAILY omeprazole 20 mg PO HS 02/23/21 02/23/21 History Past Med/Surg History Medical History Dehydration Diabetes Surgical History History of brain surgery Social History (Updated 02/23/21 @ 20:00 by Hung Brown DO) Smoking Status: Former smoker Tobacco Type: Smokeless Tobacco (Dip or Chew) Hx Alcohol Use: No Hx Substance Use: No Preferred Language: Swedish Communication Ability: Effective Community Engagement Coordinator Required: No Beliefs That Will Affect Care: None Current Living Situation: Parent Other Information That Helps Us Care for You: No Feels Safe at Home: Yes Safety Concerns: Feels Safe At This Time Assistive Devices: Glasses Review of Systems Review of Systems: As per HPI, all 10 systems reviewed, all other ROS negative Physical Exam Physical Exam: GENERAL: uncomfortable, no respiratory distress SKIN: Normal color, warm HEENT: [place] palpebral conjunctivae, no ptosis, dry buccal mucosa NECK : Supple, no tenderness CHEST : CTA, no tenderness HEART : RRR, no obvious murmurs ABDOMEN: Some distention, minimal epigastric tenderness EXTREMITIES : No LE swelling/tenderness, no other conspicuous deformities noted NEUROLOGIC : Coherent, no facial asymmetry, no other gross focality Results & Data Results & Data ([facility]) Vital Signs (Past 12 Hours) Vital Signs Temp Pulse Pulse Resp BP BP Pulse Ox 02/23/21 23:06 74 20 122/58 L 99 02/23/21 21:55 119 H 20 105/57 L 100 02/23/21 20:59 86 20 129/73 99 02/23/21 20:02 82 81 20 123/71 99 02/23/21 19:22 36.7 C 78 20 139/77 98 Laboratory Results Laboratory Results WBC 11.23 K/uL (4.8-10.8) H 02/23/21 19:38 RBC 5.56 M/uL (4.7-6.1) 02/23/21 19:38 Hgb 16.5 g/dL (14.0-18.0) 02/23/21 19:38 Hct 48.2 % (42-52) 02/23/21 19:38 MCV 86.7 fL (80-100) 02/23/21 19:38 MCH 29.7 pg (25-34) 02/23/21 19:38 MCHC 34.2 g/dL (32-36) 02/23/21 19:38 RDW Std Deviation 39.7 fL (36.4-46.3) 02/23/21 19:38 RDW Coeff of Omi 12.4 % (11.5-14.5) 02/23/21 19:38 Plt Count 358 K/uL (130-400) 02/23/21 19:38 MPV 10.0 fL (7.4-10.4) 02/23/21 19:38 Immature Gran % (Auto) 0.1 % 02/23/21 19:38 Neut % (Auto) 88.6 % 02/23/21 19:38 Lymph % (Auto) 8.2 % 02/23/21 19:38 [place] % (Auto) 2.6 % 02/23/21 19:38 Eos % (Auto) 0.3 % 02/23/21 19:38 Baso % (Auto) 0.2 % 02/23/21 19:38 Neut # (Auto) 9.96 K/uL (1.4-6.5) H 02/23/21 19:38 Lymph # (Auto) 0.92 K/uL (1.2-3.4) L 02/23/21 19:38 [place] # (Auto) 0.29 K/uL (0.11-0.59) 02/23/21 19:38 Eos # (Auto) 0.03 K/uL (0-0.5) 02/23/21 19:38 Baso # (Auto) 0.02 K/uL (0-0.2) 02/23/21 19:38 Immature Gran # (Auto) 0.01 K/uL (0.00-0.02) 02/23/21 19:38 ESR 18 mm/hr (0-15) H 02/23/21 19:38 PT 9.7 Seconds (9.0-12.0) 02/23/21 19:38 INR 1.0 (0.9-1.1) 02/23/21 19:38 APTT 21.5 Seconds (21.0-31.0) 02/23/21 19:38 PTT Ratio 0.8 02/23/21 19:38 VBG pH 7.32 (7.36-7.41) L 02/23/21 20:54 VBG pCO2 35 mmHg (38-50) L 02/23/21 19:51 VBG pO2 34 mmHg 02/23/21 19:51 VBG HCO3 16 mmol/L 02/23/21 19:51 VBG O2 Saturation 62.4 % 02/23/21 19:51 VBG Base Excess -9.5 mEq/L 02/23/21 19:51 Barometric Pressure 726.7 mm/Hg 02/23/21 19:51 Sodium 135 mmol/L (136-145) L 02/23/21 20:54 Potassium 4.1 mmol/L (3.5-5.1) 02/23/21 20:54 Chloride 99 mmol/L (98-107) 02/23/21 20:54 Carbon Dioxide 17 mmol/L (21-32) L 02/23/21 20:54 Anion Gap 19.0 (3-11) H 02/23/21 20:54 BUN 19 mg/dl (7-18) H 02/23/21 20:54 Creatinine 1.05 mg/dl (0.6-1.4) 02/23/21 20:54 Est Cr Clr Drug Dosing 113.5 ml/min 02/23/21 20:54 Est GFR ( Amer) 113.0 02/23/21 20:54 Est GFR (Non-Af Amer) 97.5 02/23/21 20:54 BUN/Creatinine Ratio 17.9 (10-20) 02/23/21 20:54 Glucose 321 mg/dl (70-99) H* 02/23/21 20:54 POC Glucose 192 mg/dl (70-99) H 02/23/21 22:51 Calcium 9.3 mg/dl (8.5-10.1) 02/23/21 20:54 Phosphorus 3.5 mg/dl (2.5-4.9) 02/23/21 20:54 Magnesium 2.1 mg/dl (1.8-2.4) 02/23/21 20:54 Total Bilirubin 1.1 mg/dl (0.2-1) H 02/23/21 19:38 AST 13 U/L (15-37) L 02/23/21 19:38 ALT 33 U/L (12-78) 02/23/21 19:38 Alkaline Phosphatase 109 U/L (45-117) 02/23/21 19:38 Troponin I < 0.015 ng/ml (0-0.045) 02/23/21 19:38 C-Reactive Protein < 0.29 mg/dl (0-0.29) 02/23/21 19:38 Total Protein 8.5 gm/dl (6.4-8.2) H 02/23/21 19:38 Albumin 4.7 gm/dl (3.4-5.0) 02/23/21 19:38 Globulin 3.8 gm/dl (2.5-4.0) 02/23/21 19:38 Albumin/Globulin Ratio 1.2 (0.9-2) 02/23/21 19:38 Lipase 46 U/L (73-393) L 02/23/21 19:38 Beta-Hydroxybutyric Acd mg/dl (0.2-2.81) 02/23/21 20:54 Urine Color Yellow 02/23/21 23:00 Urine Appearance Clear (Clear) 02/23/21 23:00 Urine pH 5.0 (4.5-7.5) 02/23/21 23:00 Ur Specific [place] 1.040 (1.000-1.030) H 02/23/21 23:00 Urine Protein Negative (Negative) 02/23/21 23:00 Urine Glucose (UA) 3+ (Negative) H 02/23/21 23:00 Urine Ketones 4+ (Negative) H 02/23/21 23:00 Urine Blood Negative (Negative) 02/23/21 23:00 Urine Nitrite Negative (Negative) 02/23/21 23:00 Urine Bilirubin Negative (Negative) 02/23/21 23:00 Urine Urobilinogen Negative (Negative) 02/23/21 23:00 Ur Leukocyte Esterase Negative (Negative) 02/23/21 23:00 COVID-19 Eval Order CovFluRsv at [facility] 02/23/21 20:58 SARS-CoV-2 (PCR) NEGATIVE (Negative) 02/23/21 20:58 Monoscreen Negative (Negative) 02/23/21 19:38 Influenza Type A (PCR) Negative (Neg) 02/23/21 20:58 Influenza Type B (PCR) Negative (Neg) 02/23/21 20:58 RSV (RT-PCR) Negative (Neg) 02/23/21 20:58 Diagnostic Findings Chest x-ray as per my interpretation: No infiltrate KUB x-ray as per my interpretation: No obstruction CT head initial read: No intracranial hemorrhage, mass-effect or CT evidence of acute infarct. Ventricles are unchanged in size and remain midline. Visualized paranasal sinuses, mastoids and orbits appear within normal limits. EKG as per my interpretation: Rate 95, NSR, normal axis, short DC interval, no ischemia (1) DKA (diabetic ketoacidoses) Diabetes mellitus complication detail: without coma Diabetes mellitus type: type 1 Qualified Code(s): E10.10 - Type 1 diabetes mellitus with ketoacidosis without coma
[2021-02-23] MEDS ORDERED: PHARMACY GLYCEMIC MGMT CONSULT STA (23:42)
[2021-02-23 23:45] LABS: Thyroid Stimulating Hormone 1.03 uIu/ml (0.300-4.500)
[2021-02-23] MEDS ORDERED: LACTATED RINGER'S 1,000 ML IV SCH (23:45)
[2021-02-23] MEDS ORDERED: KETOROLAC TROMETHAMINE 15 MG/ML VIAL IV STA (23:45)
[2021-02-23] MEDS ORDERED: PHARMACY GLYCEMIC MGMT CONSULT PRN (23:51)
[2021-02-23 23:56] LABS: Lyme Ab IgG w/WB Rflx Negative (Negative); Lyme Ab IgM w/WB Rflx Negative (Negative)
[2021-02-24] MEDS ORDERED: D5W AND LACTATED RINGERS 1,000 ML IV SCH (00:15)
[2021-02-24] MEDS ORDERED: oxyCODONE HCL IR 5 MG TAB (IMMEDIATE RELEASE) PO PRN (01:00)
[2021-02-24] MEDS ORDERED: PROMETHAZINE HCL 12.5 MG in SODIUM CHLORIDE 0.9% 50 ML IV PRN (01:00)
[2021-02-24] MEDS ORDERED: KETOROLAC TROMETHAMINE 15 MG/ML VIAL IV PRN (01:00)
[2021-02-24] MEDS ORDERED: LORazepam 0.5 MG/1 ML VIAL IV PRN (01:00)
[2021-02-24 01:46] LABS: BUN Creatinine Ratio 19.8 (10-20); Calcium 8.8 mg/dl (8.5-10.1); Est GFR (African American) 138.1; Est GFR (Non-African American) 119.1; Potassium 3.9 mmol/L (3.5-5.1)
[2021-02-24] MEDS ORDERED: D5W AND LACTATED RINGERS 1,000 ML IV ONE (03:15)
--- NOTE | 2021-02-24 06:42 | CT Scan Report ---
CT head/brain wo con CLINICAL HISTORY: 25 years-old Male with REED. Acute headache TECHNIQUE: Multiple axial CT images of the head were obtained without contrast. A dose lowering tech nique was utilized adhering to the principles of ALARA. CT DOSE: 537.48 mGy.cm COMPARISON: Head CT 02/05/2016 FINDINGS: No acute intracranial hemorrhage, midline shift, intracranial mass, hydrocephalus, territorial ischem ia or abnormal extra-axial collection. The calvarium is intact. The paranasal sinuses, mastoid air cells, and middle ear cavities are clear . IMPRESSION: No acute intracranial abnormality. ACT 112: Negative or not required by law. The above report was generated using voice recognition software. It may contain grammatical, syntax o r spelling errors. Electronically signed by: Sergio Devlin M.D. 02/24/2021 6:40 AM
--- NOTE | 2021-02-24 06:50 | XRay Report ---
XR chest 1V portable CLINICAL HISTORY: cough COMPARISON STUDY: 03/01/2018 FINDINGS: The cardiac and mediastinal contours are normal. There is no evidence of focal pulmonary co nsolidation. There is no evidence of failure. No pleural effusions are visualized.[ IMPRESSION: No active disease in the chest. ACT 112: Negative or not required by law. Electronically signed by: Patrick Varghese M.D. 02/24/2021 6:49 AM
--- NOTE | 2021-02-24 06:55 | XRay Report ---
XR KUB/Abdomen 1 view CLINICAL HISTORY: vomiting COMPARISON STUDY: No previous studies for comparison. FINDINGS: There is scattered stool throughout the colon. There is no pathologic bowel dilatation. The re are no transition zones to indicate bowel obstruction. No definite urinary tract calculi are visua lized. IMPRESSION: Nonobstructive bowel gas pattern. ACT 112: Negative or not required by law. Electronically signed by: Patrick Varghese M.D. 02/24/2021 6:53 AM
[2021-02-24 07:13] LABS: BUN Creatinine Ratio 17.6 (10-20); Basophils # (auto) 0.03 K/uL (0-0.2); Basophils % (auto) 0.3 %; Calcium 8.8 mg/dl (8.5-10.1); Creatinine Clr Calc Pharmacy 140.3 ml/min; Eosinophils # (auto) 0.13 K/uL (0-0.5); Eosinophils % (auto) 1.4 %; Est GFR (African American) 139.4; Est GFR (Non-African American) 120.3; Hematocrit (blood only) 38.3 % (42-52); Immature Granulocytes # (auto) 0.01 K/uL (0.00-0.02); Immature Granulocytes % (auto) 0.1 %; Lymphocytes # (auto) 2.59 K/uL (1.2-3.4); Lymphocytes % (auto) 28.4 %; Mean Corpuscular Hemoglobin 28.9 pg (25-34); Mean Corpuscular Hgb Conc 33.9 g/dL (32-36); Mean Corpuscular Volume 85.1 fL (80-100); Mean Platelet Volume 9.4 fL (7.4-10.4); Monocytes % (auto) 6.6 %; Neutrophils # (auto) 5.77 K/uL (1.4-6.5); Neutrophils % (auto) 63.2 %; Platelet Count 293 K/uL (130-400); Potassium 3.6 mmol/L (3.5-5.1); RDW Coefficient of Variation 12.4 % (11.5-14.5); RDW Standard Deviation 38.7 fL (36.4-46.3); White Blood Count 9.13 K/uL (4.8-10.8)
[2021-02-24 08:02] LABS: Estimated Average Glucose 335 mg/dl; Hemoglobin A1C 13.3 % (4.5-5.6)
[2021-02-24] MEDS: ACETAMINOPHEN 325 MG TAB PO PRN ×2 (09:02→20:21)
[2021-02-24] MEDS: INSULIN ASPART 100 UNITS/ML 3 ML PEN SC SCH ×2 (09:36→13:12)
--- NOTE | 2021-02-24 10:00 | Pharmacy Report ---
Pharmacy Glycemic Short Note 2 - Date of Service February 24, 2021 - Glycemic Short BSG Results (Last 24 hours): 02/23/21 02/23/21 02/23/21 19:38 20:54 20:57 Glucose 435 H* 321 H* POC Glucose 322 H* 02/23/21 02/24/21 02/24/21 22:51 00:54 01:10 Glucose 191 H POC Glucose 192 H 177 H 02/24/21 02/24/21 02/24/21 01:58 02:56 05:06 Glucose POC Glucose 175 H 190 H 201 H 02/24/21 02/24/21 02/24/21 05:58 06:14 07:00 Glucose 173 H POC Glucose 172 H 144 H 02/24/21 02/24/21 07:59 08:59 Glucose POC Glucose 129 H 175 H OUTPATIENT ANTIDIABETIC REGIMEN: * Novolog pump ASSESSMENT: * Patient admitted with DKA, secondary to possible viral illness. Started on insulin drip per DKA protocol. Anion gap closed this AM. Insulin drip this AM down to ~2 units/hr * Talked with patient regarding insulin pump. He was not able to tell me any of his basal settings on pump. He states that his mother took home his insulin pump. He reports following Dr Angel (PCP) for DM management. Called and spoke to nurse from providers office and they do not have any of his insulin pump settings either. Patient reports following [facility] at one point. * Patient now has insulin pump/supplies - Goal range 80-120, CF 40, CR 1:7. Basal rate 1.9 units/hr * Spoke with patient and plan to restart insulin pump this afternoon, plan to overlap with insulin drip until BSGs <200. Patient feels comfortable attaching pump and states he has all supplies. Communicated plan with RN PLAN FOR INPATIENT GLYCEMIC CONTROL: * Continues on insulin drip this AM, plan to overlap with insulin pump * Plan to d/c insulin drip once criteria met PLAN FOR DISCHARGE: * A1c 13.3% - Would recommend continuation of insulin pump at home. Would encourage patient reestablish care with [facility] for closer monitoring/titration of regimen at home. Feel that patient would benefit from education with using insulin pump and making adjustments on pump.
--- NOTE | 2021-02-24 14:24 | Hospitalist Progress Note ---
Date of Service February 24, 2021 Assessment & Plan (1) DKA (diabetic ketoacidoses): Secondary to viral illness DM1 on insulin pump Suboptimal control as of recent hemoglobin A1c of 11.22 June 2020 Blood sugar was 435 on admission ,the venous blood pH was at 7.28 and beta hydroxybutyric acid was highly elevated with 4+ ketones in urine Has been on intravenous insulin and also IV fluid Blood sugar has been improving and he has been eating normally Appreciate pharmacy input and recommendation He wants to go home and likely discharge tomorrow Headache secondary to viral illness Has had photophobia on admission but denies any of those this morning Rule out recurrent " brain tumor", history of brain tumor as per patient status post surgery hx cavum septum pellucidum status post surgery ([facility] [place] 2005) Awaiting MRI of the brain hx seizures as per patient, No recent seizures, patient not on AED Rx Hyperlipidemia on statin Rx Asthma, well controlled Mood disorder/PTSD, at baseline as per patient Ongoing tobacco abuse DVT prophylaxis SCDs RE brain tumor as per patient Full code Admission and Anticipated Discharge Date Admission Date: February 23, 2021 Subjective 02/24/2021 The patient was seen and examined in medical telemetry unit He was admitted with DKA likely secondary to viral infection He complains to have headache without any other significant neurological symptoms and has been feeling much better in general No more abdominal discomfort and no nausea/vomiting Review of Systems Review of Systems: All systems reviewed and are unremarkable except as noted below Respiratory: + cough and + problem reported (Nasal congestion); no dyspnea Physical Exam Physical Exam: Lying in bed comfortably Constitutional: average body habitus; not ill appearing Eyes: Watery eyes ENMT: external ear and nose normal, oropharynx normal Neck: trachea midline, no thyromegaly Respiratory: no respiratory distress Auscultation: lungs clear to auscultation bilaterally Cardiovascular: Rate/Rhythm: regular rate and regular rhythm Heart Sounds: no murmur Extremities: no edema Gastrointestinal (Abdomen): Inspection/Auscultation: normal bowel sounds; abdomen not distended Percussion/Palpation: abdomen soft; abdomen nontender Musculoskeletal: No acute arthritis involving any joint Neurologic: Alert, awake and oriented x3 Psychiatric: A+Ox3, euthymic affect Lymphatic: no cervical or axillary lymphadenopathy Results & Data Results & Data ([facility]) Vital Signs (Past 12 Hours) Vital Signs Temp Pulse Resp BP Pulse Ox 02/24/21 10:59 36.4 C L 65 14 123/64 95 02/24/21 07:11 36.4 C L 55 L 12 100/60 98 02/24/21 04:04 36.5 C 70 18 94/57 L 97 Laboratory Results Short CBC 02/23/21 02/24/21 Range/Units 19:38 06:14 WBC 11.23 H 9.13 (4.8-10.8) K/uL Hgb 16.5 13.0 L D (14.0-18.0) g/dL Hct 48.2 38.3 L (42-52) % Plt Count 358 293 (130-400) K/uL BMP 02/23/21 02/23/21 02/24/21 19:38 20:54 01:10 Sodium 133 L 135 L 138 Potassium 4.5 4.1 3.9 Chloride 95 L 99 105 Carbon Dioxide 18 L 17 L 24 BUN 20 H 19 H 17 Creatinine 1.29 1.05 0.87 Glucose 435 H* 321 H* 191 H Calcium 10.1 9.3 8.8 02/24/21 06:14 Sodium 139 Potassium 3.6 Chloride 107 Carbon Dioxide 27 BUN 15 Creatinine 0.85 Glucose 173 H Calcium 8.8 Cardiac Enzymes 02/23/21 Range/Units 19:38 Troponin I < 0.015 (0-0.045) ng/ml Liver Function 02/23/21 Range/Units 19:38 Total Bilirubin 1.1 H (0.2-1) mg/dl AST 13 L (15-37) U/L ALT 33 (12-78) U/L Alkaline Phosphatase 109 (45-117) U/L Albumin 4.7 (3.4-5.0) gm/dl Urine 02/23/21 Range/Units 23:00 Urine Color Yellow Urine Appearance Clear (Clear) Urine pH 5.0 (4.5-7.5) Ur Specific [place] 1.040 H (1.000-1.030) Urine Protein Negative (Negative) Urine Glucose (UA) 3+ H (Negative) Medications Administered Current Inpatient Medications Acetaminophen (Acetaminophen 325 Mg Tab) 650 mg PO Q6H PRN PRN Reason: Fever Stop: 03/26/21 00:59 Last Admin: 02/24/21 09:02 Dose: 650 mg Documented by: Atorvastatin Calcium (Atorvastatin 40 Mg Tab) 40 mg PO [facility] Stop: 03/26/21 20:59 Dextrose (Dextrose 50% 50 Ml Syringe) 25 - 50 ml IV UD PRN; Protocol PRN Reason: Hypoglycemia Protocol Stop: 03/25/21 21:29 Duloxetine HCl (Duloxetine Hcl 60 Mg Cap) 60 mg PO [facility] Stop: 03/26/21 20:59 Fexofenadine HCl (Fexofenadine Hcl 180 Mg Tab) 180 mg PO [facility] Stop: 03/26/21 20:59 Glucagon (Glucagon For Inj 1 Mg Vial) 1 mg IM UD PRN; Protocol PRN Reason: Hypoglycemia Protocol Stop: 03/25/21 21:29 Glucose (Glucose 40% Gel 15 Gm Tube) 15 - 30 gm PO UD PRN; Protocol PRN Reason: Hypoglycemia Protocol Stop: 03/25/21 21:29 Glucose (Glucose 10 Tabs/Tube) 4 - 8 tabs PO UD PRN; Protocol PRN Reason: Hypoglycemia Protocol Stop: 03/25/21 21:29 Insulin Human Regular 250 (units/ Sodium Chloride) 250 mls @ 2.7 mls/hr IV .Q24H [id number]; Protocol Stop: 03/25/21 20:44 Last Titration: 02/24/21 13:09 Dose: 2.7 units/hr, 2.7 mls/hr Documented by: Promethazine HCl 12.5 mg/ (Sodium Chloride) 50.5 mls @ 202 mls/hr IV Q6H PRN PRN Reason: Nausea And Vomiting Stop: 03/26/21 00:59 Lorazepam (Ativan) 0.5 mg in 1 mls @ 1 mls/min IV Q4H PRN PRN Reason: Anxiety/Agitation Stop: 03/26/21 00:59 Insulin Aspart (Insulin Aspart 100 Units/Ml 3 Ml Pen) 0 units [facility] Stop: 03/26/21 07:29 Last Admin: 02/24/21 13:12 Dose: 3 units Documented by: Ketorolac Tromethamine (Ketorolac Tromethamine 15 Mg/Ml Vial) 15 mg IV Q4H PRN PRN Reason: Pain Stop: 03/01/21 00:59 Miscellaneous (Carbohydrates For Hypoglycemia ) 15 - 30 gm PO PRN PRN PRN Reason: Hypoglycemia Treatment Stop: 03/25/21 21:29 Miscellaneous Information (Pharmacy Glycemic Mgmt Consult) 1 ea N/A UD PRN PRN Reason: Consult Stop: 03/25/21 23:50 Oxycodone HCl (Oxycodone Hcl Ir 5 Mg Tab (Immediate Release)) 5 - 10 mg PO QID PRN PRN Reason: Pain Stop: 03/10/21 00:59 (1) DKA (diabetic ketoacidoses) Diabetes mellitus complication detail: without coma Diabetes mellitus type: type 1 Qualified Code(s): E10.10 - Type 1 diabetes mellitus with ketoacidosis without coma
[2021-02-24] MEDS: NovoLOG INSULIN PUMP SCH ×2 (15:16→21:26)
[2021-02-24] MEDS ORDERED: GADOBUTROL 65ML VIAL IV ONE (20:59)
[2021-02-24] MEDS ORDERED: ATORVASTATIN 40 MG TAB PO SCH (21:00)
[2021-02-24] MEDS ORDERED: FEXOFENADINE HCL 180 MG TAB PO SCH (21:00)
[2021-02-24] MEDS ORDERED: DULoxetine HCL 60 MG CAP PO SCH (21:00)
--- NOTE | 2021-02-24 23:04 | Electrocardiogram Report ---
Test Reason : Blood Pressure : / mmHG Vent. Rate : 093 BPM Atrial Rate : 093 BPM P-R Int : 152 ms QRS Dur : 086 ms QT Int : 354 ms P-R-T Axes : 072 072 042 degrees QTc Int : 440 ms Poor data quality, interpretation may be adversely affected Normal sinus rhythm Normal ECG When compared with ECG of 01-MAR-2018 22:22, No significant change was found Confirmed by Ever Adler ([id number]) on 02/24/2021 11:03:34 PM Referred By: REFERRED SELF Confirmed By:Ever Adler
[2021-02-25 07:04] LABS: Basophils # (auto) 0.03 K/uL (0-0.2); Basophils % (auto) 0.5 %; Eosinophils # (auto) 0.17 K/uL (0-0.5); Eosinophils % (auto) 2.8 %; Hematocrit (blood only) 39.3 % (42-52); Hemoglobin 13.5 g/dL (14.0-18.0); Lymphocytes # (auto) 2.36 K/uL (1.2-3.4); Lymphocytes % (auto) 39.5 %; Mean Corpuscular Hgb Conc 34.4 g/dL (32-36); Mean Corpuscular Volume 84.3 fL (80-100); Mean Platelet Volume 9.4 fL (7.4-10.4); Monocytes # (auto) 0.36 K/uL (0.11-0.59); Neutrophils # (auto) 3.06 K/uL (1.4-6.5); Neutrophils % (auto) 51.2 %; Platelet Count 260 K/uL (130-400); RDW Coefficient of Variation 12.8 % (11.5-14.5); RDW Standard Deviation 38.8 fL (36.4-46.3); Red Blood Count 4.66 M/uL (4.7-6.1); White Blood Count 5.98 K/uL (4.8-10.8)
[2021-02-25 07:44] LABS: Blood Urea Nitrogen 8 mg/dl (7-18); Calcium 8.3 mg/dl (8.5-10.1); Carbon Dioxide 27 mmol/L (21-32); Chloride 111 mmol/L (98-107); Creatinine Clr Calc Pharmacy 172.8 ml/min; Est GFR (African American) > 150.0; Glucose 71 mg/dl (70-99); Magnesium 2.1 mg/dl (1.8-2.4); Phosphorus 3.4 mg/dl (2.5-4.9); Potassium 3.1 mmol/L (3.5-5.1); Sodium 143 mmol/L (136-145)
--- NOTE | 2021-02-25 08:12 | Magnetic Resonance Report ---
MRI OF THE BRAIN WITHOUT AND WITH IV CONTRAST CLINICAL HISTORY: Headache. History of brain tumor. Vomiting. COMPARISON STUDY: Noncontrast head CT dated 02/23/2021, MRI performed June 2011 TECHNIQUE: MRI of the brain was performed from the vertex to the skull base utilizing various T1 and T2 weighted sequences. Following the IV administration of 8 mL of Gadavist contrast, additional enhan rio images were obtained. FINDINGS: Sagittal T1, axial diffusion, proton density and T2 weighted axial, coronal FLAIR, and pre and post a xial T1-weighted images were acquired. These were supplemented with post gadolinium coronal T1 weight ed images. No intra or extra-axial mass lesions are visualized. Axial diffusion-weighted images reveal no evidence of acute or subacute infarction. There is no evidence of ventricular dilatation. There is a cavum septa pellucida and cavum vergae. Proton density T2-weighted and FLAIR images reveal a focus of increased FLAIR signal within the right frontal white matter possibly secondary to a prior shunt tract.. This remains unchanged from the MRI study There are no abnormal flow voids. There is no evidence of pathologic enhancement. IMPRESSION: 1. No acute intracranial findings 2. No evidence of acute or subacute infarction 3. No evidence of intracranial mass 4. No evidence of hydrocephalus 5. Right frontal lobe FLAIR signal abnormalities, unchanged from 2011, possibly secondary to a old sh unt tract. ACT 112: Negative or not required by law. Electronically signed by: Patrick Varghese M.D. 02/25/2021 8:10 AM
[2021-02-25] MEDS ORDERED: POTASSIUM CHLORIDE CRTAB 20 MEQ TABCR PO STA (08:35)
[2021-02-25] MEDS: ACETAMINOPHEN 325 MG TAB PO PRN (08:48)
[2021-02-25] MEDS: NovoLOG INSULIN PUMP SCH ×3 (12:00→17:43)
[2021-02-25] MEDS ORDERED: IBUPROFEN 600 MG TAB PO PRN (12:24)
--- NOTE | 2021-02-25 13:35 | Hospitalist Progress Note ---
Date of Service February 25, 2021 Assessment & Plan (1) DKA (diabetic ketoacidoses): Secondary to viral illness DM1 on insulin pump Suboptimal control as of recent hemoglobin A1c of 11.22 June 2020 Blood sugar was 435 on admission ,the venous blood pH was at 7.28 and beta hydroxybutyric acid was highly elevated with 4+ ketones in urine Has been on intravenous insulin and also IV fluid Blood sugar has been improving and he has been eating normally Appreciate pharmacy input and recommendation He wants to go home and likely discharge tomorrow He is back to his insulin pump and has been eating and drinking normally Remains generally weak and lethargic Likely be discharged tomorrow Headache secondary to viral illness Has had photophobia on admission but denies any of those this morning Rule out recurrent " brain tumor", history of brain tumor as per patient status post surgery hx cavum septum pellucidum status post surgery ([facility] [place] 2005) Awaiting MRI of the brain-no acute intracranial findings, no evidence of acute or subacute infarction, no evidence of intracranial mass, no evidence of hydrocephalus, right frontal lobe of flair signal abnormalities, unchanged from 2010, possibly secondary to old shunt tract We will try ibuprofen to control the headache hx seizures as per patient, No recent seizures, patient not on AED Rx Hyperlipidemia on statin Rx Asthma, well controlled Mood disorder/PTSD, at baseline as per patient Ongoing tobacco abuse DVT prophylaxis SCDs RE brain tumor as per patient Full code Likely to be discharged tomorrow Admission and Anticipated Discharge Date Admission Date: February 23, 2021 Subjective 02/24/2021 The patient was seen and examined in medical telemetry unit He was admitted with DKA likely secondary to viral infection He complains to have headache without any other significant neurological symptoms and has been feeling much better in general No more abdominal discomfort and no nausea/vomiting 02/25/2021 The patient was seen and examined in medical telemetry unit He complains to have a bifrontal headache and noted to have a blood sugar of 60 early this morning He is back on his insulin pump and has been tolerating regular diet He still remains weak and lethargic and not yet ready to be discharged Review of Systems Review of Systems: All systems reviewed and are unremarkable except as noted below Respiratory: no cough, no dyspnea and no problem reported (Nasal congestion) Neurologic: + headache(s) Physical Exam Physical Exam: Lying in bed comfortably Constitutional: average body habitus; not ill appearing ENMT: external ear and nose normal, oropharynx normal Neck: trachea midline, no thyromegaly Respiratory: no respiratory distress Auscultation: lungs clear to auscultation bilaterally Cardiovascular: Rate/Rhythm: regular rate and regular rhythm Heart Sounds: no murmur Extremities: no edema Gastrointestinal (Abdomen): Inspection/Auscultation: normal bowel sounds; abdomen not distended Percussion/Palpation: abdomen soft; abdomen nontender Musculoskeletal: No acute arthritis in any joint Neurologic: Alert, awake and oriented x3. Still has headache Psychiatric: A+Ox3, euthymic affect Lymphatic: no cervical or axillary lymphadenopathy Results & Data Results & Data ([facility]) Vital Signs (Past 12 Hours) Vital Signs Temp Pulse Resp BP Pulse Ox 02/25/21 10:57 36.7 C 71 20 130/83 98 02/25/21 10:14 36.7 C 64 20 116/70 98 Laboratory Results Short CBC 02/25/21 Range/Units 06:28 WBC 5.98 (4.8-10.8) K/uL Hgb 13.5 L (14.0-18.0) g/dL Hct 39.3 L (42-52) % Plt Count 260 (130-400) K/uL BMP 02/25/21 06:28 Sodium 143 Potassium 3.1 L Chloride 111 H Carbon Dioxide 27 BUN 8 D Creatinine 0.69 Glucose 71 Calcium 8.3 L Medications Administered Current Inpatient Medications Acetaminophen (Acetaminophen 325 Mg Tab) 650 mg PO Q6H PRN PRN Reason: Fever Stop: 03/26/21 00:59 Last Admin: 02/25/21 08:48 Dose: 650 mg Documented by: Atorvastatin Calcium (Atorvastatin 40 Mg Tab) 40 mg PO HS KAUSHIK Stop: 03/26/21 20:59 Last Admin: 02/24/21 21:26 Dose: 40 mg Documented by: Dextrose (Dextrose 50% 50 Ml Syringe) 25 - 50 ml IV UD PRN; Protocol PRN Reason: Hypoglycemia Protocol Stop: 03/25/21 21:29 Duloxetine HCl (Duloxetine Hcl 60 Mg Cap) 60 mg PO HS KAUSHIK Stop: 03/26/21 20:59 Last Admin: 02/24/21 21:26 Dose: 60 mg Documented by: Fexofenadine HCl (Fexofenadine Hcl 180 Mg Tab) 180 mg PO HS KAUSHIK Stop: 03/26/21 20:59 Last Admin: 02/24/21 21:26 Dose: 180 mg Documented by: Glucagon (Glucagon For Inj 1 Mg Vial) 1 mg IM UD PRN; Protocol PRN Reason: Hypoglycemia Protocol Stop: 03/25/21 21:29 Glucose (Glucose 40% Gel 15 Gm Tube) 15 - 30 gm PO UD PRN; Protocol PRN Reason: Hypoglycemia Protocol Stop: 03/25/21 21:29 Glucose (Glucose 10 Tabs/Tube) 4 - 8 tabs PO UD PRN; Protocol PRN Reason: Hypoglycemia Protocol Stop: 03/25/21 21:29 Promethazine HCl 12.5 mg/ (Sodium Chloride) 50.5 mls @ 202 mls/hr IV Q6H PRN PRN Reason: Nausea And Vomiting Stop: 03/26/21 00:59 Lorazepam (Ativan) 0.5 mg in 1 mls @ 1 mls/min IV Q4H PRN PRN Reason: Anxiety/Agitation Stop: 03/26/21 00:59 Ibuprofen (Ibuprofen 600 Mg Tab) 600 mg PO Q8H PRN PRN Reason: Headache Stop: 03/27/21 12:23 Insulin Aspart (Novolog Insulin Pump) 1 ea N/A [facility]; Protocol Stop: 03/26/21 14:59 Last Admin: 02/25/21 12:53 Dose: Not Given Documented by: Miscellaneous (Carbohydrates For Hypoglycemia ) 15 - 30 gm PO PRN PRN PRN Reason: Hypoglycemia Treatment Stop: 03/25/21 21:29 Miscellaneous Information (Pharmacy Glycemic Mgmt Consult) 1 ea N/A UD PRN PRN Reason: Consult Stop: 03/25/21 23:50 Oxycodone HCl (Oxycodone Hcl Ir 5 Mg Tab (Immediate Release)) 5 - 10 mg PO QID PRN PRN Reason: Pain Stop: 03/10/21 00:59 (1) DKA (diabetic ketoacidoses) Diabetes mellitus complication detail: without coma Diabetes mellitus type: type 1 Qualified Code(s): E10.10 - Type 1 diabetes mellitus with ketoacidosis without coma
--- NOTE | 2021-02-26 07:36 | Discharge Summary ---
Date of Service February 26, 2021 Admission HPI Per Admitting Provider History obtained from patient and records. Medical history significant for DM1 on insulin pump, hyperlipidemia, asthma, mood disorder/PTSD, "hx brain tumor" as per patient, hx cavum septum pellucidum status post surgery ([facility] [place] 2005) history seizures as per patient, ongoing tobacco abuse. 1 week history of not feeling well, achy headache symptoms somewhat worse with light, subsequent achy abdominal pain, nausea, vomiting. Good BM. Chest pain from vomiting without shortness of breath as per patient. No known recent COVID-19 contacts. Symptoms attributed to viral illness on PCP visit. Outpatient COVID-19 test was negative. Worsening symptoms at home. Poor appetite. High sugars in the 500s. At the ER, IV insulin started for DKA. 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 Discharge Exam Constitutional average body habitus; not ill appearing ENMT external ear and nose normal, oropharynx normal Neck trachea midline, no thyromegaly Respiratory no respiratory distress Auscultation: lungs clear to auscultation bilaterally Cardiovascular Rate/Rhythm: regular rate and regular rhythm Heart Sounds: no murmur Extremities: no edema Gastrointestinal (Abdomen) Inspection/Auscultation: normal bowel sounds; abdomen not distended Percussion/Palpation: abdomen soft; abdomen nontender Psychiatric A+Ox3, euthymic affect Lymphatic no cervical or axillary lymphadenopathy Discharge Data Allergies Allergy/AdvReac Type Severity Reaction Status Date / Time Penicillins Allergy Severe HIVES Unverified 02/23/21 20:34 Sulfa (Sulfonamide Allergy Severe HIVES Unverified 02/23/21 20:34 Antibiotics) sulfisoxazole Allergy Unknown hives Verified 02/23/21 20:34 Consultations 02/23/21 20:41 ED Decision to Admit Stat Ordered Studies 02/23/21 20:40 CT head/brain wo con Urgent 02/24/21 01:00 MR brain wo/w con Routine Diabetes Follow up Diabetes Follow-up Needed for HgbA1c >9% Hospital Course (1) DKA (diabetic ketoacidoses): Secondary to viral illness DM1 on insulin pump Suboptimal control as of recent hemoglobin A1c of 11.22 June 2020 Blood sugar was 435 on admission ,the venous blood pH was at 7.28 and beta hydroxybutyric acid was highly elevated with 4+ ketones in urine Has been on intravenous insulin and also IV fluid Blood sugar has been improving and he has been eating normally Appreciate pharmacy input and recommendation He wants to go home and likely discharge tomorrow He is back to his insulin pump and has been eating and drinking normally Remains generally weak and lethargic Likely be discharged tomorrow Headache secondary to viral illness Has had photophobia on admission but denies any of those this morning Rule out recurrent " brain tumor", history of brain tumor as per patient status post surgery hx cavum septum pellucidum status post surgery ([facility] [place]) Awaiting MRI of the brain-no acute intracranial findings, no evidence of acute or subacute infarction, no evidence of intracranial mass, no evidence of hydrocephalus, right frontal lobe of flair signal abnormalities, unchanged from 2010, possibly secondary to old shunt tract We will try ibuprofen to control the headache hx seizures as per patient, No recent seizures, patient not on AED Rx Hyperlipidemia on statin Rx Asthma, well controlled Mood disorder/PTSD, at baseline as per patient Ongoing tobacco abuse DVT prophylaxis SCDs RE brain tumor as per patient Full code Likely to be discharged tomorrow Total Time Total Time Spent Total Time Spent (In Minutes): 35 minutes Total Time Includes: Examination of the Patient, Discharge Planning, Medication Reconciliation and Communication With Other Providers Discharge Plan Discharge Items Patient Disposition: Home - Self-Care Reason For Visit: DKA Discharge Diagnosis: DKA,Type 1 diabetes on Insulin Pump. Condition on Discharge: Good Activity: Resume your previous activity Non-emergency contact: Primary Care Provider Call non-emergency contact if: you have any medication questions and your symptoms worsen Follow-up/Referrals: Cori Angel MD [Primary Care Provider] - (Date & Time 03/03/2021 5:40 PM Provider Cori Angel MD Department Family Medicine [facility] ) Diet: Carb Count or DM1 Addtl Attending Provider Instructions: Please adjust your insulin doses as advised. Please keep appointment with [facility] strategic partnership representative on 12 March at 9:30 AM You can try Tylenol and/or ibuprofen as needed to control headache as recommended Pending Studies at Discharge: No Stand-Alone Forms: My [facility], Work/School Release (Inpt), Smoking Cessation Medications and DC Order Prescriptions: Continued atorvastatin 40 mg tablet 40 mg PO HS RF: 0 insulin aspart U-100 [Novolog U-100 Insulin aspart] 100 unit/mL solution 100 unit continuous subcutaneous infusion DAILY RF: 0 omeprazole 20 mg capsule,delayed release(DR/EC) 20 mg PO HS RF: 0 duloxetine 60 mg capsule,delayed release(DR/EC) 60 mg PO HS RF: 0 fexofenadine 180 mg Tablet 180 mg PO HS RF: 0 acetaminophen [Tylenol Extra Strength] 500 mg Tablet 1,000 mg PO Q6H PRN (Reason: Pain) RF: 0 Discharge Orders: Discharge Order (Routine); Ordered 02/25/21 Ordered By: Claudia Gorman Admission Data Admit Date/Time: 02/23/21 23:38 Attending Provider: Claudia Gorman Admit Provider: Aiden Arthur Primary Care Provider: Cori Angel Other Providers: Aiden Arthur ; Claudia Gorman Other Interventions: Discharge Summary Assessment (RN) Last Done: 02/25/21 17:08
== END 2021-02-25 18:14 | disposition home or self-care (01) | DRG 639 ==
LOC: ED 19:20 → SUATTDRO 23:38 → 2N 23:38